=== PATIENT | male | born 1945 | race Caucasian/White ===

== ENCOUNTER 2016-11-10 16:03 | Inpatient (IN) | payer MEDICARE, OTHER ==
--- NOTE | 2016-11-10 16:12 | EDM.PDOC ---
ED HPI GENERAL MEDICAL PROBLEM - General Chief Complaint: General Stated Complaint: Decreased Sodium Time Seen by Provider: 11/10/16 16:10 Source of Information: Reports: Patient, Family (), Old Records ([facility] chart/EMR), Other (Limited transfer records from [facility] in [place]) History Limitations: Reports: No Limitations - History of Present Illness INITIAL COMMENTS - FREE TEXT/NARRATIVE: The patient was brought to the emergency room via private automobile by his for evaluation of newly diagnosed mild leukocytosis and hyponatremia with blood work run in this facility shortly prior to arrival. Note that the patient was sent to this clinic for further evaluation by his regular provider, Rosalia Mendoza PA-C, at [facility] in [place], for further treatment and evaluation. The patient has been experiencing some nonspecific anorexia, generalized arthralgias, and fatigue since 11/05 with the patient not taking any of his medications since about 11/06. He did receive an influenza booster this past season with no recent known exposure to infection, etc. He has also had a nonproductive cough during the last few days with no dyspnea, wheezing, etc.. The patient denies any chest pain/pressure, heart flutter, dizziness, orthostasis, orthopnea, diaphoresis, paresthesias, recent decreased exercise tolerance, or any other anginal-type symptoms. No recent history of abdominal pain, heartburn, diarrhea, melena, gross hematochezia, or any food intolerance, including fatty foods, etc., although some nonspecific nausea couple days ago without emesis and with normal bowel movement 2 days ago. His metformin was apparently increased to a twice a day regimen about 3 weeks ago. He denies any current significant pain or discomfort despite previous arthralgias as above Onset: Gradual Onset Date: 11/05/16 Duration: Constant, Getting Worse Location: Reports: Generalized (As above) Quality: Reports: Ache Severity: Moderate Improves with: Reports: None Worsens with: Reports: None Context: Reports: Other (As above) Associated Symptoms: Reports: Cough, Loss of Appetite, Nausea/Vomiting, Other ( Nonspecific fatigue). 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 Denies: Allergic Rhinitis, Cataract, Hard of Hearing, Retinal Detachment Other HEENT History: Patient wears glasses Cardiovascular History: Reports: Arrhythmia, Heart Murmur, High Cholesterol, Hypertension, Other (See Below). Denies: Afib, Aneurysm, Blood Clots/VTE/DVT, CAD, Cardiomyopathy, Heart Failure, AK, PTCA, PVD, Syncope Other Cardiovascular History: Occasional benign PVCs with no history of cardiac disease and negative workup as below, benign heart murmur secondary to rheumatic fever as a child Respiratory History: Reports: None. Denies: Asthma, COPD, Intubation, Difficult , Intubation, Previous, PE, Pneumothorax, Sleep Apnea, TB Gastrointestinal History: Reports: None. Denies: Bowel Obstruction, Celiac Disease, Cholelithiasis, Chronic Constipation, Chronic Diarrhea, Colon Polyp, Diverticulosis, Fecal Incontinence, Gastritis, GI Bleed, Hepatitis, Hiatal Hernia, Inflammatory Bowel Disease, Irritable Bowel Syndrome, Jaundice, Pancreatitis Genitourinary History: Reports: BPH. Denies: Acute Renal Failure, Chronic Renal Insuffiency, Dialysis, Pyelonephritis, Renal Calculus, Retention, Urinary , STD, Urinary Incontinence, UTI, Recurrent Musculoskeletal History: Reports: Osteoarthritis, Other (See Below). Denies: Amputation, Arthritis, Back Pain, Chronic, Fracture, Gout, Neck Pain, Chronic, Osteoporosis, RA, SLE Other Musculoskeletal History: Mild Scoliosis by x-rays with no chronic low back pain since bilateral TKA as below Neurological History: Reports: None. Denies: Alzheimers Disease, Cerebral Aneurysms, Concussion, Headaches, Chronic, Head Trauma, Migraines, MS, Neuropathy, Diabetic, Neuropathy, Peripheral, Parkinson's, Seizure, TIA Psychiatric History: Reports: None. Denies: Abuse, Victim of, ADD, ADHD, Addiction, Anxiety, Dementia, Depression, Panic Attack, Psych Hospitalization(s) , PTSD, Suicide Attempt, Suicidal Ideation Endocrine/Metabolic History: Reports: Diabetes, Type II, Hypothyroidism. Denies : Diabetes, Type I, IDDM Hematologic History: Reports: None. Denies: Anemia, Blood Transfusion(s), Iron Deficiency Immunologic History: Reports: None. Denies: AIDS, HIV, SLE Oncologic (Cancer) History: Reports: None. Denies: Basal Cell Carcinoma, Colon , Hodgkin's Lymphoma, Leukemia, Lymphoma, Malignant Melanoma, Non-Hodgkin's Lymphoma, Prostate, Squamous Cell Carcinoma Dermatologic History: Reports: None. Denies: Eczema, Psoriasis - Infectious Disease History Infectious Disease History: Reports: None, Chicken Pox, Measles, Rheumatic Fever. Denies: C-Difficile, Meningitis, Mononucleosis, MRSA, Mumps, Pertussis ( Whooping Cough), Rubella, Scarlet Fever, Shingles, TB, VRE - Past Surgical History Head Surgeries/Procedures: Reports: None HEENT Surgical History: Reports: Oral Surgery, Other (See Below). Denies: Adenoidectomy, Cataract Surgery, Eye Surgery, Laser Surgery, LASIK, Myringotomy w Tube(s), Naso-Sinus Surgery, Tonsillectomy Other HEENT Surgeries/Procedures: Multiple dental extractions Cardiovascular Surgical History: Reports: None. Denies: Pacer, Varicose, Vascular Surgery Respiratory Surgical History: Reports: None. Denies: Thoracentesis GI Surgical History: Reports: None. Denies: Appendectomy, Cholecystectomy, Colonoscopy, EGD, Hernia, Abdominal, Hernia, Inguinal, Hernia Repair/Other, Polypectomy Male Surgical History: Reports: None. Denies: Circumcision, Prostate Biopsy , TURP-Transurethral Resection of Prostate, Vasectomy Endocrine Surgical History: Reports: None. Denies: Thyroid Biopsy Neurological Surgical History: Reports: None. Denies: C-Spine, Discectomy, Intracranial, Laminectomy, Lumbar Spine, Spinal Fusion, Vertebroplasty Musculoskeletal Surgical History: Reports: Joint Replacement, Knee Replacement, Other (See Below). Denies: Arthroscopic Knee, Arthroscopic Procedure, Carpal Tunnel, Ganglion Cyst, Hip Replacement, ORIF, Shoulder Surgery Other Musculoskeletal Surgeries/Procedures:: Bilateral total knee arthroplasty in 2010 Oncologic Surgical History: Reports: None Dermatological Surgical History: Reports: None - Past Imaging History Past Imaging History: Reports: Angiography (Heart catheterization in 2011 as follow-up for stress test as below), Stress Testing (Borderline positive exercise portion of Cardiolite stress test on 04/10/10 with normal ejection fraction of 55% at that time a normal subsequent immediate follow-up heart catheterization) Social & Family History - Family History HEENT: Reports: None. Denies: Cataract, Glaucoma, Impaired Vision, Macular Degeneration, Retinal Detachment Cardiac: Reports: CAD, Heart Failure, AK, Other (See Below). Denies: Afib, Arrhythmia, Blood Clots/VTE/DVT, Heart Murmur, High Cholesterol, Hypertension, PVD/COD, Syncope Other Cardiac Family History: Mother with fatal CHF at age 102, brother from an AK in his late 50s with possible history of PTCA/stent Respiratory: Reports: COPD, Other (See Below). Denies: Asthma, PE, Pneumothorax , Sleep Apnea, TB Other Respiratory Family Hisory: Father with fatal COPD at age 75 with history of tobacco use GI: Reports: None. Denies: Celiac Disease, Cholelithiasis, Colon Polyps, GERD, GI bleed, Inflammatory Bowel Disease, Irritable Bowel Syndrome, PUD : Reports: None. Denies: Dialysis, Renal Calculus, Renal Disease/ Insufficiency OBGYN: Reports: None Musculoskeletal: Reports: None. Denies: Gout, RA, SLE Neurological: Reports: None, CVA, Other (See Below). Denies: Alzheimers Disease , Cerebral Aneurysms, Migraines, MS, Parkinson's, Seizure, TIA Other Neurological Family History: Parents with apparent CVAs Psychiatric: Reports: None. Denies: Abuse, Victim of, ADD, ADHD, Anxiety, Depression, Psych Hospitalization(s), PTSD, Suicide Attempt Endocrine/Metabolic: Reports: None. Denies: Diabetes, Type I, Diabetes, type II , Hypothyroidism, IDDM Hematologic: Reports: None. Denies: Anemia Immunologic: Reports: None. Denies: AIDS, HIV, SLE Dermatologic: Reports: None. Denies: Eczema, Psoriasis Oncologic: Reports: Brain, Skin, Other (See Below) Other Oncologic Family History: Sister with fatal unknown type of cancer in her 70s, another sister with fatal brain cancer in her 60s, mother with history of unknown type of skin cancer - Tobacco Use Smoking Status *Q: Never Smoker Used Tobacco, but Quit: No Smoking Cessation Information Provided To Patient: No Second Hand Smoke Exposure: No Second Hand Smoke Education Provided: No - Caffeine Use Caffeine Use: Reports: Coffee (2 cups per day), Soda (Very occasional). Denies : Energy Drinks, Tea - Alcohol Use Alcohol Use History: Yes Days Per Week of Alcohol Use: 1 (No previous DWIs, problems with alcohol abuse, etc.) Number of Drinks Per Day: 1 (Usually beer) Total Drinks Per Week: 1 Alcohol Use in Last Twelve Months: Yes Alcohol Use Frequency: Socially, Weekly - Recreational Drug Use Recreational Drug Use: No Drug Use in Last 12 Months: No Recreational Drug Type: Denies: Amphetamines (Speed), Cocaine, Heroin, Inhalants (Glues, Solvents, Aerosols), LSD (Acid), Marijuana/Hashish, Methamphetamine, Morphine - Living Situation & Occupation Living situation: Reports: (1969, 4 children), with Family () 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 Denies: Fever, Chills, Malaise, Weakness, Night Sweats, Diaphoresis, Weight Loss, Weight Gain HEENT: Reports: Glasses. Denies: Dental Pain, Ear Pain, Eye Discharge, Eye Pain , Hearing Loss, Nose Pain, Rhinitis, Sinus Problem, Throat Pain, Throat Swelling , Vertigo, Vision Change Respiratory: Reports: Cough. Denies: Shortness of Breath, Wheezing, Pleuritic Chest Pain, Sputum, Hemoptysis Cardiovascular: Denies: Chest Pain, Blood Pressure Problem, Claudication, Dyspnea on Exertion, Edema, Lightheadedness, Orthopnea, Palpitations, PND, Syncope Endocrine: Reports: Fatigue (Nonspecific), High Glucose (Home Accu-Cheks averaging in the 230s). Denies: Low Glucose, Polydypsia, Polyuria GI/Abdominal: Reports: No Symptoms. Denies: Abdominal Pain, Anorexia, Black Stool, Bloody Stool, Constipation, Diarrhea, Decreased Appetite, Difficulty Swallowing, Distension, Flatus, Hematemesis, Hematochezia, Melena, Mucous in Stool, Nausea, Stool Incontinence, Vomiting : Reports: No Symptoms. Denies: Dysuria, Flank Pain, Frequency, Hematuria, Incontinence, Pain, Urgency, Urinary Retention Musculoskeletal: Reports: Joint Pain (As below), Muscle Pain (Generalized arthralgias). Denies: Neck Pain, Shoulder Pain, Back Pain, Leg Pain, Joint Swelling Skin: Denies: Jaundice, Pallor, Diaphoresis, Bruising, Pruritis, Wound Neurological: Reports: No Symptoms. Denies: Confusion, Dizziness, Headache, Numbness, Paresthesia, Syncope, Tingling, Tremors, Weakness Psychiatric: Reports: No Symptoms. Denies: Agitation, Anxiety, Confusion, Cravings, Depression, Hallucinations, Mood Lability, Suicidal Ideation Hematologic/Lymphatic: Reports: No Symptoms Immunologic: Reports: No Symptoms ED EXAM, GENERAL - Physical Exam Exam: See Below Exam Limited By: No Limitations General Appearance: Alert, WD/WN, No Apparent Distress Eye Exam: Bilateral Eye: EOMI, Normal Fundi, PERRL Ears: Normal Canal (Although moderate cerumen impaction right greater than left) , Normal TMs, Hearing Loss (Mild bilateral presbycusis by clinical exam) Nose: Normal Inspection, Normal Mucosa, No Blood. No: Clear Rhinorrhea Throat/Mouth: Normal Inspection, Normal Lips, Normal Teeth (Occasional missing teeth), Normal Gums, Normal Oropharynx, Normal Voice, No Airway Compromise. No : Dysphagia, Perioral Cyanosis Head: Atraumatic, Normocephalic. No: Facial Swelling, Facial Tenderness, Sinus Tenderness Neck: Supple, Non-Tender, Full Range of Motion, Carotid Bruit (Mild bilateral borderline carotid bruits). No: Lymphadenopathy (L), Lymphadenopathy (R), Thyromegaly Respiratory/Chest: No Respiratory Distress, Lungs Clear, Normal Breath Sounds, No Accessory Muscle Use, Chest Non-Tender. No: Pleural Rub, Retractions Cardiovascular: Normal Peripheral Pulses, Regular Rate, Rhythm, No Edema, No Gallop, No JVD, No Murmur (Despite history as above), No Rub. No: Gallop/S3, Gallop/S4, Friction Rub Peripheral Pulses: 2+: Radial (L), Radial (R), Dorsalis Pedis (L), Dorsalis Pedis (R) GI/Abdominal: Normal Bowel Sounds, Soft, Non-Tender, No Organomegaly, No Distention, No Abnormal Bruit, No Mass, Pelvis Stable. No: Guarding (Male) Exam: Deferred Rectal (Males) Exam: Deferred Back Exam: Normal Inspection, Full Range of Motion. No: CVA Tenderness (L), CVA Tenderness (R), Muscle Spasm Extremities: Normal Inspection, Normal Range of Motion, Non-Tender, No Pedal Edema, Normal Capillary Refill. No: Ally's Sign Neurological: Alert, Oriented, CN II-XII Intact, Normal Cognition, Normal Gait, Normal Reflexes (Negative Babinski's), No Motor/Sensory Deficits Psychiatric: Normal Affect, Normal Mood Skin Exam: Warm, Dry, Intact, Normal Color, No Rash. No: Diaphoretic, Ecchymosis, Petechiae, Wound/Incision Lymphatic: No Adenopathy EKG INTERPRETATION EKG Date: 11/10/16 Time: 16:30 Rhythm: NSR Rate (Beats/Min): 72 Ina: Normal (Neutral cardiac axis) P-Wave: Present (Diffuse biphasic P wavesmild) QRS: Wide (QRS interval of 0.10 seconds representing probable repolarization changes with T-wave in lead V1 and 3 with questionable Q wave in lead 3) ST-T: Normal QT: Normal MI/PQ Interval: 0.18 seconds Comparison: No Change (Last EKG at time of Cardiolite stress test on 04/10/10) EKG Interpretation Comments: 1. No acute ischemic changes 2. Possible left atrial enlargement Course - Vital Signs Last Recorded V/S: Last Vital Signs Temp 36.8 C 11/10/16 16:05 Pulse 75 11/10/16 17:06 Resp 16 11/10/16 17:06 BP 131/71 11/10/16 17:06 Pulse Ox 100 11/10/16 17:06 Vital Signs - 24 hr 11/10/16 11/10/16 11/10/16 16:05 16:15 16:50 Temperature [ 36.8 C Oral] Pulse, 78 79 74 Peripheral [ Pulse Oximetry] Respiratory 16 16 17 Rate Blood Pressure 115/90 135/73 129/69 [Right Upper Arm] O2 Sat by Pulse 99 98 99 Oximetry 11/10/16 17:06 Temperature [ Oral] Pulse, 75 Peripheral [ Pulse Oximetry] Respiratory 16 Rate Blood Pressure 131/71 [Right Upper Arm] O2 Sat by Pulse 100 Oximetry Note [employer] down during care and may be incomplete - Orders/Labs/Meds Orders: Active Orders 24 hr Category Date Time Status Cardiac Monitoring [RC] . DIRECTED Care 11/10/16 16:15 Active EKG Documentation Completion [RC] ASDIRECTED Care 11/10/16 16:15 Active Peripheral IV Care [RC] . DIRECTED Care 11/10/16 16:15 Active Pulse Oximetry [RC] CONTINUOUS Care 11/10/16 16:15 Active Up With Assistance [RC] PFP Care 11/10/16 16:15 Active Vital Signs [RC] PFP Care 11/10/16 16:15 Active Nothing per Oral Now Diet [DIET] Diet 11/10/16 Breakfast Active Chest 1V Frontal [CR] Stat Exams 11/10/16 16:15 Taken CULTURE BLOOD [BC] Stat Lab 11/10/16 16:20 Received CULTURE BLOOD [BC] Stat Lab 11/10/16 16:30 Received Sodium Chloride 0.9% [Saline Flush] Med 11/10/16 16:14 Active 10 ml FLUSH ASDIRECTED PRN Blood Culture x2 Reflex Set [OM.PC] Urgent Oth 11/10/16 16:18 Ordered Obtain Past Medical Record [OM.PC] Urgent Oth 11/10/16 16:15 Active Peripheral IV Insertion Adult [OM.PC] Stat Oth 11/10/16 16:15 Ordered Resuscitation Status Stat Resus Stat 11/10/16 16:14 Ordered Medication Orders Sodium Chloride (Saline Flush) 10 ml FLUSH ASDIRECTED PRN PRN Reason: Keep Vein Open Labs: Laboratory Tests 11/10/16 11/10/16 11/10/16 Range/Units 16:20 16:20 16:20 PT 11.4 (9.8-11.7) SEC INR 1.1 APTT 23.6 (23.5-30.0) SEC D-Dimer, Quantitative 347 (0-400) ng/mL Lactic Acid (0.4-2.0) mmol/L Uric Acid 5.1 (2.6-7.2) mg/dL Magnesium 2.3 (1.8-2.4) mg/dL Creatine Kinase 74 (26-308) U/L Creatine Kinase Index 0.5 (0.0-2.5) % CK-MB (CK-2) 0.40 (0.00-3.60) ng/mL Troponin I 0.028 (0.000-0.056) ng/mL [id number] Pept 134 H (0-125) pg/mL TSH, Ultra Sensitive 5.872 H (0.358-3.740) mIU/mL 11/10/16 Range/Units 16:20 PT (9.8-11.7) SEC INR APTT (23.5-30.0) SEC D-Dimer, Quantitative (0-400) ng/mL Lactic Acid 2.0 (0.4-2.0) mmol/L Uric Acid (2.6-7.2) mg/dL Magnesium (1.8-2.4) mg/dL Creatine Kinase (26-308) U/L Creatine Kinase Index (0.0-2.5) % CK-MB (CK-2) (0.00-3.60) ng/mL Troponin I (0.000-0.056) ng/mL [id number] Pept (0-125) pg/mL TSH, Ultra Sensitive (0.358-3.740) mIU/mL Blood cultures 2 also collected. CBC ordered prior to emergency room evaluation by his regular provider showed elevated WBCs of 12.7 with 9.67 neutrophils and normal hemoglobin of 14.0. Comprehensive metabolic panel was normal with exception of sodium of 128 and chloride of 92 with elevated random glucose of 252, calcium 8.4, and total bilirubin of 1.5 and CK normal at 72, CRP 0.5 Meds: Medications Generic Name Dose Route Start Last Admin Trade Name Freq PRN Reason Stop Dose Admin Sodium Chloride 10 ml 11/10/16 16:14 Saline Flush FLUSH ASDIRECTED PRN Keep Vein Open - Radiology Interpretation Free Text/Narrative:: Heart monitor shows normal sinus rhythm with heart rate in the 70s with no ectopy or arrhythmia Chest x-ray, portable, shows evidence of possible pulmonary obstructive disease with moderately prominent aortic arch but no evidence of aneurysm, cardiomegaly , pulmonary infiltrates, pneumothorax, etc.. Probable pulmonary hypertension with possible mild CHF component Departure - Departure Time of Disposition: 18:25 Disposition: Admitted As Inpatient 64 Condition: Good Clinical Impression: Hyponatremia, Hypothyroidism (acquired) CHF (congestive heart failure) Qualifiers: Congestive heart failure type: unspecified congestive heart failure type Congestive heart failure chronicity: acute Qualified Code(s): I50.9 - Heart failure, unspecified Hyperlipidemia Qualifiers: Hyperlipidemia type: unspecified Qualified Code(s): E78.5 - Hyperlipidemia, unspecified Diabetes mellitus Qualifiers: Diabetes mellitus type: type 2 Diabetes mellitus complication status: without complication Diabetes mellitus shelter insulin use: without shelter use Qualified Code(s): E11.9 - Type 2 diabetes mellitus without complications Osteoarthritis Qualifiers: Osteoarthritis location: multiple joints Osteoarthritis type: primary Qualified Code(s): M15.0 - Primary generalized (osteo)arthritis Fatigue Qualifiers: Fatigue type: unspecified Qualified Code(s): R53.83 - Other fatigue - Discharge Information Forms: ED Department Discharge Care Plan Goals: See plan - Problem List & Annotations (1) CHF (congestive heart failure) SNOMED Code(s): 42995580 Code(s): I50.9 - HEART FAILURE, UNSPECIFIED Status: Acute Priority: High Current Visit: Yes Onset Date: 11/10/16 Annotation/Comment:: Borderline CHF by chest x-ray and BNP, although no recent chest pain or anginal type symptoms. Note multiple cardiac risk factors, however. Echocardiogram as an outpatient secondary to availability. Initiate standard cardiac rule out AK orders with mild change in his troponin I but otherwise normal EKG and cardiac enzymes. Chest pain protocol not initiated in the emergency room secondary to absence of anginal type symptoms. Cardiology consultation and/or further workup , including Cardiolite stress test, etc., depending on his clinical course Qualifiers: Congestive heart failure type: unspecified congestive heart failure type Congestive heart failure chronicity: acute Qualified Code(s): I50.9 - Heart failure, unspecified (2) Hyponatremia SNOMED Code(s): 13376655 Code(s): E87.1 - HYPO-OSMOLALITY AND HYPONATREMIA Status: Acute Priority : High Current Visit: Yes Onset Date: 11/10/16 Annotation/Comment:: IV lactated Ringer's with caution secondary to his borderline CHF as above. Consider 3% sodium chloride infusion depending on his clinical response (3) Diabetes mellitus SNOMED Code(s): 78230696 Code(s): E11.9 - TYPE 2 DIABETES MELLITUS WITHOUT COMPLICATIONS Status: Chronic Priority: Medium Current Visit: Yes Annotation/Comment:: Under poor control recently was recently increased metformin as above. Glycosylated hemoglobin in the a.m. 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 Observe for now Qualifiers: Fatigue type: unspecified Qualified Code(s): R53.83 - Other fatigue (5) Hyperlipidemia SNOMED Code(s): 58760192 Code(s): E78.5 - HYPERLIPIDEMIA, UNSPECIFIED Status: Chronic Priority: Medium Current Visit: Yes Annotation/Comment:: Currently under therapy, lipid panel in the a.m. Qualifiers: Hyperlipidemia type: unspecified Qualified Code(s): E78.5 - Hyperlipidemia , unspecified (6) Hypothyroidism (acquired) SNOMED Code(s): 960451583 Code(s): E03.9 - HYPOTHYROIDISM, UNSPECIFIED Status: Acute Priority: Medium Current Visit: Yes Annotation/Comment:: TSH somewhat elevated today, however patient has been noncompliant with his medications over the last few days as above. Observe for now with repeat TSH prior to discharge (7) Osteoarthritis SNOMED Code(s): 977789565 Code(s): M19.90 - UNSPECIFIED OSTEOARTHRITIS, UNSPECIFIED SITE Status: Chronic Priority: Medium Current Visit: Yes Annotation/Comment:: Stable by history Qualifiers: Osteoarthritis location: multiple joints Osteoarthritis type: primary Qualified Code(s): M15.0 - Primary generalized (osteo)arthritis - Problem List Review Problem List Initiated/Reviewed/Updated: Yes - My Orders Last 24 Hours: My Active Orders 11/10/16 16:14 Sodium Chloride 0.9% [Saline Flush] 10 ml FLUSH ASDIRECTED PRN Resuscitation Status Stat 11/10/16 16:15 Cardiac Monitoring [RC] . DIRECTED EKG Documentation Completion [RC] ASDIRECTED Peripheral IV Care [RC] . DIRECTED Pulse Oximetry [RC] CONTINUOUS Up With Assistance [RC] PFP Vital Signs [RC] PFP Chest 1V Frontal [CR] Stat Obtain Past Medical Record [OM.PC] Urgent Peripheral IV Insertion Adult [OM.PC] Stat 11/10/16 16:18 Blood Culture x2 Reflex Set [OM.PC] Urgent 11/10/16 16:20 CULTURE BLOOD [BC] Stat 11/10/16 16:30 CULTURE BLOOD [BC] Stat 11/10/16 Breakfast Nothing per Oral Now Diet [DIET] - Assessment/Plan Admission H&P: Please use this note as an admission H&P Last 24 Hours: My Active Orders 11/10/16 16:14 Sodium Chloride 0.9% [Saline Flush] 10 ml FLUSH ASDIRECTED PRN Resuscitation Status Stat 11/10/16 16:15 Cardiac Monitoring [RC] . DIRECTED EKG Documentation Completion [RC] ASDIRECTED Peripheral IV Care [RC] . DIRECTED Pulse Oximetry [RC] CONTINUOUS Up With Assistance [RC] PFP Vital Signs [RC] PFP Chest 1V Frontal [CR] Stat Obtain Past Medical Record [OM.PC] Urgent Peripheral IV Insertion Adult [OM.PC] Stat 11/10/16 16:18 Blood Culture x2 Reflex Set [OM.PC] Urgent 11/10/16 16:20 CULTURE BLOOD [BC] Stat 11/10/16 16:30 CULTURE BLOOD [BC] Stat 11/10/16 Breakfast Nothing per Oral Now Diet [DIET] Assessment:: As above. Plan: As above. Extensive precautions were given to the patient and his , who are in agreement with the treatment plan. The patient will require about 3-4 days of inpatient/acute care secondary to multiple health problems as above. Coral batres physician assumes care in the a.m.
[2016-11-10] MEDS ORDERED: Insulin Aspart 100 Units/ML 3 ML Pen SUBCUT SCH (18:00)
[2016-11-10] MEDS ORDERED: metFORMIN 500 MG Tab.ER PO SCH (19:30)
[2016-11-10] MEDS ORDERED: cefTRIAXone 1 GM Vial IV SCH (20:00)
[2016-11-10] MEDS: Famotidine 20 MG/2 ML SDV IVPUSH SCH (20:46)
[2016-11-10] MEDS: cefTRIAXone 1 GM Vial IVPUSH SCH (20:49)
[2016-11-10] MEDS: Lactated Ringers 1,000 ML IV SCH (20:57)
[2016-11-10] MEDS: Sodium Chloride 0.9% 10 ML Syringe FLUSH PRN (20:58)
[2016-11-11] MEDS: Lactated Ringers 1,000 ML IV SCH ×2 (06:55→18:52)
[2016-11-11] MEDS: Insulin Aspart 100 Units/ML 3 ML Pen SUBCUT SCH ×4 (07:26→21:12)
[2016-11-11] MEDS: Famotidine 20 MG/2 ML SDV IVPUSH SCH ×2 (07:28→17:08)
[2016-11-11] MEDS: Aspirin 81 MG Tab.EC PO SCH (07:30)
[2016-11-11] MEDS ORDERED: Levothyroxine 25 MCG Tab PO SCH (07:30)
[2016-11-11] MEDS: Levothyroxine 25 MCG Tab PO SCH (07:31)
[2016-11-11] MEDS: Lisinopril 10 MG Tab PO SCH (07:31)
[2016-11-11] MEDS: metFORMIN 500 MG Tab.ER PO SCH ×2 (07:31→17:07)
[2016-11-11] MEDS: cefTRIAXone 1 GM Vial IVPUSH SCH (07:38)
[2016-11-11] MEDS: Sodium Chloride 0.9% 10 ML Syringe FLUSH PRN ×2 (07:42→08:50)
[2016-11-11 07:46] LABS: CHLORIDE,CL 96 mmol/L (98-107); SODIUM,NA 130 mmol/L (136-145)
[2016-11-11] MEDS ORDERED: Aspirin 81 MG Tab.EC PO SCH ×2 (08:00→20:00)
[2016-11-11] MEDS ORDERED: Lisinopril 10 MG Tab PO SCH (08:00)
[2016-11-11] MEDS ORDERED: atorvaSTATin 10 MG Tab PO SCH (08:00)
[2016-11-11] MEDS: atorvaSTATin 10 MG Tab PO SCH (08:58)
[2016-11-11] MEDS ORDERED: Magnesium Hydroxide 400 MG/5 ML Susp 30 ML Cup PO PRN (10:01)
[2016-11-11] MEDS: cefTRIAXone 1 GM in Sodium Chloride 0.9% 100 ML IV SCH (19:21)
--- NOTE | 2016-11-11 20:38 | PCM.PN ---
- General Info Date of Service: 11/11/16 Admission Dx/Problem (Free Text): Patient admitted for hyponatremia, fatigue. Noted to have elevated TSH. Also had intermittent confusion. Functional Status: Reports: Pain Controlled, Tolerating Diet, Ambulating, Urinating. Denies: New Symptoms - Review of Systems General: Reports: Fatigue (much improved today). Denies: Fever, Malaise, Chills , Night Sweats HEENT: Reports: No Symptoms. Denies: Headaches Pulmonary: Reports: No Symptoms Cardiovascular: Reports: No Symptoms Gastrointestinal: Reports: No Symptoms, Other (No stool for approximately 4 days but denies feeling constipated. ) Genitourinary: Reports: No Symptoms Musculoskeletal: Reports: No Symptoms Skin: Reports: No Symptoms Neurological: Reports: No Symptoms Psychiatric: Reports: No Symptoms - Patient Data Vitals - Most Recent: Last Vital Signs Temp 37.6 C 11/11/16 20:00 Pulse 77 11/11/16 20:00 Resp 16 11/11/16 20:00 BP 130/63 11/11/16 20:00 Pulse Ox 100 11/11/16 20:00 Weight - Most Recent: 80.331 kg I&O - Last 24 Hours: Intake & Output 11/11/16 11/11/16 11/11/16 06:59 14:59 22:59 Intake Total 1088 240 Output Total 525 Balance -525 1088 240 Lab Results Last 24 Hours: Laboratory Results - last 24 hr 11/10/16 11/10/16 11/10/16 Range/Units 20:44 21:42 21:42 WBC (4.0-10.2) K/uL RBC (4.33-5.41) M/uL Hgb (13.1-16.8) g/dL Hct (39.0-49.0) % MCV (84.0-98.0) fL MCH (28.2-33.3) pg MCHC (31.7-36.0) g/dL RDW (11.2-14.1) % Plt Count (150-350) K/uL Neut % (Auto) (45.0-80.0) % Lymph % (Auto) (10.0-50.0) % [place] % (Auto) (2.0-14.0) % Eos % (Auto) (0.0-5.0) % Baso % (Auto) (0.0-2.0) % Neut # (Auto) (1.40-7.00) K/uL Lymph # (Auto) (0.50-3.50) K/uL [place] # (Auto) (0.00-1.00) K/uL Eos # (Auto) (0.00-0.50) K/uL Baso # (Auto) (0.00-0.20) K/uL Sodium (136-145) mmol/L Potassium (3.5-5.1) mmol/L Chloride (98-107) mmol/L Carbon Dioxide (21.0-32.0) mmol/L BUN (7-18) mg/dL Creatinine (0.51-1.17) mg/dL Est Cr Clr Drug Dosing mL/min Estimated GFR (MDRD) mL/min Glucose (74-106) mg/dL POC Glucose 181 H (65-110) mg/dl Hemoglobin A1c (4.3-5.7) % Calcium (8.5-10.1) mg/dL Total Bilirubin 1.3 H (0.2-1.0) mg/dL Direct Bilirubin 0.4 H (0.0-0.2) mg/dL Indirect Bilirubin 0.9 AST (15-37) U/L ALT (12-78) U/L Alkaline Phosphatase (46-116) IU/L Creatine Kinase 83 (26-308) U/L Creatine Kinase Index 0.5 (0.0-2.5) % CK-MB (CK-2) 0.40 (0.00-3.60) ng/mL Troponin I 0.030 (0.000-0.056) ng/mL Total Protein (6.4-8.2) g/dL Albumin (3.4-5.0) g/dL Triglycerides (30-150) mg/dL Cholesterol (100-200) mg/dL LDL Cholesterol, Calc (0-100) mg/dL HDL Cholesterol (40-60) mg/dL Ur Random Microalbumin (NEGATIVE) mg/L Ketones Negative 11/11/16 11/11/16 11/11/16 Range/Units 03:36 03:50 06:47 WBC 9.0 (4.0-10.2) K/uL RBC 3.92 L (4.33-5.41) M/uL Hgb 12.4 L D (13.1-16.8) g/dL Hct 34.8 L (39.0-49.0) % MCV 88.8 (84.0-98.0) fL MCH 31.6 (28.2-33.3) pg MCHC 35.6 (31.7-36.0) g/dL RDW 12.0 (11.2-14.1) % Plt Count 202 (150-350) K/uL Neut % (Auto) 70.5 (45.0-80.0) % Lymph % (Auto) 16.7 (10.0-50.0) % [place] % (Auto) 12.0 (2.0-14.0) % Eos % (Auto) 0.6 (0.0-5.0) % Baso % (Auto) 0.2 (0.0-2.0) % Neut # (Auto) 6.35 (1.40-7.00) K/uL Lymph # (Auto) 1.50 (0.50-3.50) K/uL [place] # (Auto) 1.08 H (0.00-1.00) K/uL Eos # (Auto) 0.05 (0.00-0.50) K/uL Baso # (Auto) 0.02 (0.00-0.20) K/uL Sodium (136-145) mmol/L Potassium (3.5-5.1) mmol/L Chloride (98-107) mmol/L Carbon Dioxide (21.0-32.0) mmol/L BUN (7-18) mg/dL Creatinine (0.51-1.17) mg/dL Est Cr Clr Drug Dosing mL/min Estimated GFR (MDRD) mL/min Glucose (74-106) mg/dL POC Glucose 189 H (65-110) mg/dl Hemoglobin A1c (4.3-5.7) % Calcium (8.5-10.1) mg/dL Total Bilirubin (0.2-1.0) mg/dL Direct Bilirubin (0.0-0.2) mg/dL Indirect Bilirubin AST (15-37) U/L ALT (12-78) U/L Alkaline Phosphatase (46-116) IU/L Creatine Kinase (26-308) U/L Creatine Kinase Index (0.0-2.5) % CK-MB (CK-2) (0.00-3.60) ng/mL Troponin I (0.000-0.056) ng/mL Total Protein (6.4-8.2) g/dL Albumin (3.4-5.0) g/dL Triglycerides (30-150) mg/dL Cholesterol (100-200) mg/dL LDL Cholesterol, Calc (0-100) mg/dL HDL Cholesterol (40-60) mg/dL Ur Random Microalbumin 0 (NEGATIVE) mg/L Ketones 11/11/16 11/11/16 11/11/16 Range/Units 06:47 06:47 07:26 WBC (4.0-10.2) K/uL RBC (4.33-5.41) M/uL Hgb (13.1-16.8) g/dL Hct (39.0-49.0) % MCV (84.0-98.0) fL MCH (28.2-33.3) pg MCHC (31.7-36.0) g/dL RDW (11.2-14.1) % Plt Count (150-350) K/uL Neut % (Auto) (45.0-80.0) % Lymph % (Auto) (10.0-50.0) % [place] % (Auto) (2.0-14.0) % Eos % (Auto) (0.0-5.0) % Baso % (Auto) (0.0-2.0) % Neut # (Auto) (1.40-7.00) K/uL Lymph # (Auto) (0.50-3.50) K/uL [place] # (Auto) (0.00-1.00) K/uL Eos # (Auto) (0.00-0.50) K/uL Baso # (Auto) (0.00-0.20) K/uL Sodium 130 L (136-145) mmol/L Potassium 4.0 (3.5-5.1) mmol/L Chloride 96 L (98-107) mmol/L Carbon Dioxide 26.2 (21.0-32.0) mmol/L BUN 17 (7-18) mg/dL Creatinine 1.03 (0.51-1.17) mg/dL Est Cr Clr Drug Dosing 65.95 mL/min Estimated GFR (MDRD) > 60 mL/min Glucose 181 H (74-106) mg/dL POC Glucose 175 H (65-110) mg/dl Hemoglobin A1c 9.2 H (4.3-5.7) % Calcium 8.0 L (8.5-10.1) mg/dL Total Bilirubin 1.4 H (0.2-1.0) mg/dL Direct Bilirubin (0.0-0.2) mg/dL Indirect Bilirubin AST 15 (15-37) U/L ALT 23 (12-78) U/L Alkaline Phosphatase 68 (46-116) IU/L Creatine Kinase 84 (26-308) U/L Creatine Kinase Index 0.5 (0.0-2.5) % CK-MB (CK-2) 0.40 (0.00-3.60) ng/mL Troponin I 0.024 (0.000-0.056) ng/mL Total Protein 6.8 (6.4-8.2) g/dL Albumin 3.1 L (3.4-5.0) g/dL Triglycerides 73 (30-150) mg/dL Cholesterol 110 (100-200) mg/dL LDL Cholesterol, Calc 70 (0-100) mg/dL HDL Cholesterol 25 L (40-60) mg/dL Ur Random Microalbumin (NEGATIVE) mg/L Ketones 11/11/16 11/11/16 Range/Units 11:39 16:59 WBC (4.0-10.2) K/uL RBC (4.33-5.41) M/uL Hgb (13.1-16.8) g/dL Hct (39.0-49.0) % MCV (84.0-98.0) fL MCH (28.2-33.3) pg MCHC (31.7-36.0) g/dL RDW (11.2-14.1) % Plt Count (150-350) K/uL Neut % (Auto) (45.0-80.0) % Lymph % (Auto) (10.0-50.0) % [place] % (Auto) (2.0-14.0) % Eos % (Auto) (0.0-5.0) % Baso % (Auto) (0.0-2.0) % Neut # (Auto) (1.40-7.00) K/uL Lymph # (Auto) (0.50-3.50) K/uL [place] # (Auto) (0.00-1.00) K/uL Eos # (Auto) (0.00-0.50) K/uL Baso # (Auto) (0.00-0.20) K/uL Sodium (136-145) mmol/L Potassium (3.5-5.1) mmol/L Chloride (98-107) mmol/L Carbon Dioxide (21.0-32.0) mmol/L BUN (7-18) mg/dL Creatinine (0.51-1.17) mg/dL Est Cr Clr Drug Dosing mL/min Estimated GFR (MDRD) mL/min Glucose (74-106) mg/dL POC Glucose 158 H 158 H (65-110) mg/dl Hemoglobin A1c (4.3-5.7) % Calcium (8.5-10.1) mg/dL Total Bilirubin (0.2-1.0) mg/dL Direct Bilirubin (0.0-0.2) mg/dL Indirect Bilirubin AST (15-37) U/L ALT (12-78) U/L Alkaline Phosphatase (46-116) IU/L Creatine Kinase (26-308) U/L Creatine Kinase Index (0.0-2.5) % CK-MB (CK-2) (0.00-3.60) ng/mL Troponin I (0.000-0.056) ng/mL Total Protein (6.4-8.2) g/dL Albumin (3.4-5.0) g/dL Triglycerides (30-150) mg/dL Cholesterol (100-200) mg/dL LDL Cholesterol, Calc (0-100) mg/dL HDL Cholesterol (40-60) mg/dL Ur Random Microalbumin (NEGATIVE) mg/L Ketones Med Orders - Current: Current Medications Aspirin (Halfprin) 81 mg PO DAILY [facility] Last Admin: 11/11/16 07:30 Dose: 81 mg Atorvastatin Calcium (Lipitor) 10 mg PO DAILY [facility] Last Admin: 11/11/16 08:58 Dose: 10 mg Famotidine (Pepcid) 20 mg IVPUSH BID [facility] Last Admin: 11/11/16 17:08 Dose: 20 mg Lactated Ringer's (Ringers, Lactated) 1,000 mls @ 100 mls/hr IV ASDIRECTED [facility] Last Admin: 11/11/16 18:52 Dose: 100 mls/hr Ceftriaxone Sodium 1 gm/ (Sodium Chloride) 100 mls @ 200 mls/hr IV Q12H [facility] Last Admin: 11/11/16 19:21 Dose: 200 mls/hr Insulin Aspart (Novolog) 0 unit SUBCUT QIDACANDBED [facility] PRN Reason: Protocol Last Admin: 11/11/16 17:00 Dose: Not Given Levothyroxine Sodium (Levothyroxine) 25 mcg PO DAILY [facility] Last Admin: 11/11/16 07:31 Dose: 25 mcg Lisinopril (Prinivil) 10 mg PO DAILY [facility] Last Admin: 11/11/16 07:31 Dose: 10 mg Magnesium Hydroxide (Milk Of Magnesia) 30 ml PO DAILY PRN PRN Reason: Constipation Metformin HCl (Glucophage Xr) 500 mg PO BID [facility] Last Admin: 11/11/16 17:07 Dose: 500 mg Sodium Chloride (Saline Flush) 10 ml FLUSH ASDIRECTED PRN PRN Reason: Keep Vein Open Last Admin: 11/11/16 08:50 Dose: 10 ml Discontinued Medications Aspirin (Halfprin) 81 mg PO DAILY [facility] Atorvastatin Calcium (Lipitor) 10 mg PO DAILY [facility] Ceftriaxone Sodium (Rocephin) 1 gm IV Q12H [facility] Ceftriaxone Sodium (Rocephin) 1 gm IVPUSH Q12H [facility] Last Admin: 11/11/16 07:38 Dose: 1 gm Insulin Aspart (Novolog) 0 unit SUBCUT Q6H [facility] PRN Reason: Protocol Last Admin: 11/10/16 20:54 Dose: 2 units Levothyroxine Sodium (Levothyroxine) 25 mcg PO ACBREAKFAST [facility] Lisinopril (Prinivil) 10 mg PO DAILY [facility] Metformin HCl (Glucophage Xr) 500 mg PO BIDMEALS [facility] Last Admin: 11/10/16 20:50 Dose: 500 mg - Exam General: Alert, Oriented, Cooperative, No Acute Distress HEENT: Pupils Equal, Pupils Reactive, EOMI, Mucous Membr. Moist/[place] Neck: Supple Lungs: Clear to Auscultation, Normal Respiratory Effort Cardiovascular: Regular Rate, Regular Rhythm GI/Abdominal Exam: Normal Bowel Sounds, Soft, Non-Tender, No Organomegaly, No Distention, No Mass (Male) Exam: Deferred Back Exam: Normal Inspection Extremities: Normal Inspection, Non-Tender, Normal Capillary Refill Peripheral Pulses: 2+: Radial (L), Radial (R) Skin: Warm, Dry, Intact Neurological: No New Focal Deficit Psy/Mental Status: Alert, Normal Affect, Normal Mood EKG INTERPRETATION EKG Date: 11/11/16 Time: 07:13 Rhythm: NSR Rate (Beats/Min): 61 [place]: Normal P-Wave: Present QRS: Normal ST-T: Normal QT: Normal Comparison: No Change - Problem List & Annotations (1) Hyponatremia SNOMED Code(s): 63718910 Code(s): E87.1 - HYPO-OSMOLALITY AND HYPONATREMIA Status: Acute Priority : High Current Visit: Yes Onset Date: 11/10/16 Annotation/Comment:: Improved to 130 today. Will change to 3% sodium chloride overnight and recheck sodium level in the morning. (2) Hypothyroidism (acquired) SNOMED Code(s): 224186744 Code(s): E03.9 - HYPOTHYROIDISM, UNSPECIFIED Status: Acute Priority: Medium Current Visit: Yes Annotation/Comment:: TSH somewhat elevated today, however patient has been noncompliant with his medications over the last few days as above. Observe for now with repeat TSH prior to discharge - Problem List Review Problem List Initiated/Reviewed/Updated: Yes - My Orders Last 24 Hours: My Active Orders 11/11/16 20:32 LYME/B.BURGDORFERI IGG/IGM [REF] Routine [place] VIRUS IGM [REF] Routine 11/11/16 Dinner ADA Diabetic [[place] [employer] Diet] [DIET] 11/12/16 05:11 COMPREHENSIVE METABOLIC PN,CMP [CHEM] AM 11/12/16 05:15 CBC WITH AUTO DIFF [HEME] AM - Assessment Assessment:: Patient with fatigue, mild confusion at times. Mild hyponatremia that has improved slightly since admission. On Rocephin. Mildly elevated WBC noted in UA. Troponin unremarkable. No changes noted on EKG today. Patient overall feels much better today then yesterday per self report. He did recall that he has not quite felt like his usual self for a good month. Specifically notes feeling chilled at times and needing to wear a sweater when he normally would not of in past. Patient and family brought up concern about possible Lyme disease or [place]. They noted his earlier problems with generalized achiness as well as headache along with the observed confusion. - Plan Plan:: Will give 3% Na IV tonight at low rate of infusion given CHF history. Added Lyme as well as [place] to morning labs. Recheck CBC and Chem in AM.
[2016-11-11] MEDS ORDERED: Sodium Chloride 3% 500 ML IV SCH (21:00)
[2016-11-11] MEDS ORDERED: Sodium Chloride 0.9% 500 ML IV ONE (21:27)
[2016-11-12] MEDS: Insulin Aspart 100 Units/ML 3 ML Pen SUBCUT SCH ×4 (08:23→21:07)
[2016-11-12] MEDS: Levothyroxine 25 MCG Tab PO SCH (08:24)
[2016-11-12] MEDS: metFORMIN 500 MG Tab.ER PO SCH ×2 (08:25→17:38)
[2016-11-12] MEDS: Lisinopril 10 MG Tab PO SCH (08:25)
[2016-11-12] MEDS: Aspirin 81 MG Tab.EC PO SCH (08:25)
[2016-11-12] MEDS: atorvaSTATin 10 MG Tab PO SCH (08:26)
[2016-11-12] MEDS: Famotidine 20 MG/2 ML SDV IVPUSH SCH ×2 (08:27→17:38)
[2016-11-12] MEDS: Sodium Chloride 0.9% 10 ML Syringe FLUSH PRN ×4 (08:28→19:42)
[2016-11-12] MEDS: cefTRIAXone 1 GM in Sodium Chloride 0.9% 100 ML IV SCH ×2 (08:33→19:42)
[2016-11-12 09:07] LABS: CHLORIDE,CL 98 mmol/L (98-107); SODIUM,NA 130 mmol/L (136-145)
[2016-11-12] MEDS ORDERED: Sodium Chloride 3% 500 ML IV SCH (09:30)
--- NOTE | 2016-11-12 10:47 | PCM.PN ---
- General Info Date of Service: 11/12/16 Admission Dx/Problem (Free Text): 1. CHF 2. Hyponatremia 3. Diabetes mellitus 4. Nonspecific fatigue with diffuse arthralgias Subjective Update: As below Functional Status: Reports: Pain Controlled, Tolerating Diet, Ambulating, Urinating. Denies: New Symptoms, Incentive Spirometry Pain Score: 0 - Review of Systems General: Reports: Other (No arthralgias today). Denies: Fever, Weakness, Fatigue (Resolved), Malaise, Chills, Night Sweats, Appetite (Appetite good) HEENT: Reports: Glasses. Denies: Ear Pain, Eye Pain, Headaches, Sinus Congestion, Sore Throat, Rhinitis, Visual Changes Pulmonary: Reports: No Symptoms. Denies: Shortness of Breath, Pleuritic Chest Pain, Cough, Sputum, Wheezing Cardiovascular: Reports: No Symptoms. Denies: Chest Pain, Palpitations, Dyspnea on Exertion, Orthopnea, PND, Edema, Lightheadedness Gastrointestinal: Reports: No Symptoms, Other (Normal bowel movement this morning). Denies: Abdominal Pain, Constipation, Decreased Appetite, Diarrhea, Difficulty Swallowing, Flatus, Hematochezia, Melena, Nausea, Vomiting Genitourinary: Reports: No Symptoms. Denies: Dysuria, Frequency, Burning, Pain , Urgency, Incontinence, Hematuria, Retention, Flank Pain Musculoskeletal: Reports: No Symptoms. Denies: Neck Pain, Shoulder Pain, Arm Pain, Hand Pain, Back Pain, Joint Pain, Joint Swelling Skin: Reports: No Symptoms. Denies: Diaphoresis, Bruising Neurological: Reports: No Symptoms. Denies: Confusion (Resolved questionable borderline intermittent confusion), Dizziness, Headache, Numbness, Paresthesia, Tingling, Trouble Speaking, Difficulty Walking, Weakness, Change in Speech Psychiatric: Reports: No Symptoms. Denies: Confusion, Depression, Anxiety, Agitation, Cravings, Hallucinations - Patient Data Vitals - Most Recent: Last Vital Signs Temp 36.8 C 11/12/16 08:00 Pulse 72 11/12/16 08:00 Resp 16 11/12/16 08:00 BP 129/65 11/12/16 08:25 Pulse Ox 100 11/12/16 08:00 Vital Signs - 24 hr 11/11/16 11/11/16 11/11/16 11:40 16:00 20:00 Temperature [ 36.1 C 37.6 C Oral] Temperature [ 37.0 C Temporal] Pulse, 70 73 77 Peripheral [ Pulse Oximetry] Respiratory 16 16 16 Rate Blood Pressure Blood Pressure 119/69 108/67 130/63 [Right Upper Arm] O2 Sat by Pulse 98 100 100 Oximetry 11/12/16 11/12/16 08:00 08:25 Temperature [ Oral] Temperature [ 36.8 C Temporal] Pulse, 72 Peripheral [ Pulse Oximetry] Respiratory 16 Rate Blood Pressure 129/65 Blood Pressure 129/65 [Right Upper Arm] O2 Sat by Pulse 100 Oximetry Weight - Most Recent: 82.826 kg (Increased 2.5 kg since yesterday) I&O - Last 24 Hours: Intake & Output 11/11/16 11/12/16 11/12/16 22:59 06:59 14:59 Intake Total 240 500 Output Total 500 400 Balance 240 -500 100 Imaging Impressions - Last 24 Hours: None Lab Results Last 24 Hours: Laboratory Results - last 24 hr 11/11/16 11/11/16 11/11/16 Range/Units 07:26 11:39 16:59 WBC (4.0-10.2) K/uL RBC (4.33-5.41) M/uL Hgb (13.1-16.8) g/dL Hct (39.0-49.0) % MCV (84.0-98.0) fL MCH (28.2-33.3) pg MCHC (31.7-36.0) g/dL RDW (11.2-14.1) % Plt Count (150-350) K/uL Neut % (Auto) (45.0-80.0) % Lymph % (Auto) (10.0-50.0) % Wright % (Auto) (2.0-14.0) % Eos % (Auto) (0.0-5.0) % Baso % (Auto) (0.0-2.0) % Neut # (Auto) (1.40-7.00) K/uL Lymph # (Auto) (0.50-3.50) K/uL Wright # (Auto) (0.00-1.00) K/uL Eos # (Auto) (0.00-0.50) K/uL Baso # (Auto) (0.00-0.20) K/uL Sodium (136-145) mmol/L Potassium (3.5-5.1) mmol/L Chloride (98-107) mmol/L Carbon Dioxide (21.0-32.0) mmol/L BUN (7-18) mg/dL Creatinine (0.51-1.17) mg/dL Est Cr Clr Drug Dosing mL/min Estimated GFR (MDRD) mL/min Glucose (74-106) mg/dL POC Glucose 175 H 158 H 158 H (65-110) mg/dl Calcium (8.5-10.1) mg/dL Total Bilirubin (0.2-1.0) mg/dL AST (15-37) U/L ALT (12-78) U/L Alkaline Phosphatase (46-116) IU/L Total Protein (6.4-8.2) g/dL Albumin (3.4-5.0) g/dL 11/11/16 11/12/16 11/12/16 Range/Units 21:09 03:30 06:40 WBC (4.0-10.2) K/uL RBC (4.33-5.41) M/uL Hgb (13.1-16.8) g/dL Hct (39.0-49.0) % MCV (84.0-98.0) fL MCH (28.2-33.3) pg MCHC (31.7-36.0) g/dL RDW (11.2-14.1) % Plt Count (150-350) K/uL Neut % (Auto) (45.0-80.0) % Lymph % (Auto) (10.0-50.0) % Wright % (Auto) (2.0-14.0) % Eos % (Auto) (0.0-5.0) % Baso % (Auto) (0.0-2.0) % Neut # (Auto) (1.40-7.00) K/uL Lymph # (Auto) (0.50-3.50) K/uL Wright # (Auto) (0.00-1.00) K/uL Eos # (Auto) (0.00-0.50) K/uL Baso # (Auto) (0.00-0.20) K/uL Sodium 130 L (136-145) mmol/L Potassium 3.9 (3.5-5.1) mmol/L Chloride 98 (98-107) mmol/L Carbon Dioxide 21.4 (21.0-32.0) mmol/L BUN 15 (7-18) mg/dL Creatinine 0.95 (0.51-1.17) mg/dL Est Cr Clr Drug Dosing 71.68 mL/min Estimated GFR (MDRD) > 60 mL/min Glucose 170 H (74-106) mg/dL POC Glucose 240 H 173 H (65-110) mg/dl Calcium 7.7 L (8.5-10.1) mg/dL Total Bilirubin 0.9 (0.2-1.0) mg/dL AST 13 L (15-37) U/L ALT 19 (12-78) U/L Alkaline Phosphatase 70 (46-116) IU/L Total Protein 6.2 L (6.4-8.2) g/dL Albumin 3.0 L (3.4-5.0) g/dL 11/12/16 11/12/16 Range/Units 06:40 07:15 WBC 7.7 (4.0-10.2) K/uL RBC 3.68 L (4.33-5.41) M/uL Hgb 11.7 L (13.1-16.8) g/dL Hct 32.4 L (39.0-49.0) % MCV 88.0 (84.0-98.0) fL MCH 31.8 (28.2-33.3) pg MCHC 36.1 H (31.7-36.0) g/dL RDW 11.9 (11.2-14.1) % Plt Count 194 (150-350) K/uL Neut % (Auto) 68.6 (45.0-80.0) % Lymph % (Auto) 17.3 (10.0-50.0) % Wright % (Auto) 12.8 (2.0-14.0) % Eos % (Auto) 1.0 (0.0-5.0) % Baso % (Auto) 0.3 (0.0-2.0) % Neut # (Auto) 5.31 (1.40-7.00) K/uL Lymph # (Auto) 1.34 (0.50-3.50) K/uL Wright # (Auto) 0.99 (0.00-1.00) K/uL Eos # (Auto) 0.08 (0.00-0.50) K/uL Baso # (Auto) 0.02 (0.00-0.20) K/uL Sodium (136-145) mmol/L Potassium (3.5-5.1) mmol/L Chloride (98-107) mmol/L Carbon Dioxide (21.0-32.0) mmol/L BUN (7-18) mg/dL Creatinine (0.51-1.17) mg/dL Est Cr Clr Drug Dosing mL/min Estimated GFR (MDRD) mL/min Glucose (74-106) mg/dL POC Glucose 133 H (65-110) mg/dl Calcium (8.5-10.1) mg/dL Total Bilirubin (0.2-1.0) mg/dL AST (15-37) U/L ALT (12-78) U/L Alkaline Phosphatase (46-116) IU/L Total Protein (6.4-8.2) g/dL Albumin (3.4-5.0) g/dL Paul Results Last 24 Hours: Microbiology 11/10/16 03:50 Urine, Clean Catch Urine Culture - Preliminary NO GROWTH AFTER 1 DAY 11/10/16 16:30 Blood - Venous - Lab Draw Aerobic Blood Culture - Preliminary NO GROWTH AFTER 1 DAY 11/10/16 16:30 Blood - Venous - Lab Draw Anaerobic Blood Culture - Preliminary NO GROWTH AFTER 1 DAY 11/10/16 16:20 Blood - Venous Aerobic Blood Culture - Preliminary NO GROWTH AFTER 1 DAY 11/10/16 16:20 Blood - Venous Anaerobic Blood Culture - Preliminary NO GROWTH AFTER 1 DAY Med Orders - Current: Current Medications Aspirin (Halfprin) 81 mg PO DAILY COUNTS INCLUDE 234 BEDS AT THE [facility] Last Admin: 11/12/16 08:25 Dose: 81 mg Atorvastatin Calcium (Lipitor) 10 mg PO DAILY COUNTS INCLUDE 234 BEDS AT THE [facility] Last Admin: 11/12/16 08:26 Dose: 10 mg Famotidine (Pepcid) 20 mg IVPUSH BID COUNTS INCLUDE 234 BEDS AT THE [facility] Last Admin: 11/12/16 08:27 Dose: 20 mg Ceftriaxone Sodium 1 gm/ (Sodium Chloride) 100 mls @ 200 mls/hr IV Q12H COUNTS INCLUDE 234 BEDS AT THE [facility] Last Admin: 11/12/16 08:33 Dose: 200 mls/hr Sodium Chloride (Sodium Chloride 3%) 500 mls @ 100 mls/hr IV ASDIRECTED COUNTS INCLUDE 234 BEDS AT THE [facility] Last Admin: 11/12/16 10:12 Dose: 100 mls/hr Insulin Aspart (Novolog) 0 unit SUBCUT QIDACANDBED COUNTS INCLUDE 234 BEDS AT THE [facility] PRN Reason: Protocol Last Admin: 11/12/16 08:23 Dose: Not Given Levothyroxine Sodium (Levothyroxine) 25 mcg PO DAILY COUNTS INCLUDE 234 BEDS AT THE [facility] Last Admin: 11/12/16 08:24 Dose: 25 mcg Lisinopril (Prinivil) 10 mg PO DAILY COUNTS INCLUDE 234 BEDS AT THE [facility] Last Admin: 11/12/16 08:25 Dose: 10 mg Magnesium Hydroxide (Milk Of Magnesia) 30 ml PO DAILY PRN PRN Reason: Constipation Metformin HCl (Glucophage Xr) 500 mg PO BID COUNTS INCLUDE 234 BEDS AT THE [facility] Last Admin: 11/12/16 08:25 Dose: 500 mg Sodium Chloride (Saline Flush) 10 ml FLUSH ASDIRECTED PRN PRN Reason: Keep Vein Open Last Admin: 11/12/16 10:14 Dose: 10 ml Discontinued Medications Aspirin (Halfprin) 81 mg PO DAILY COUNTS INCLUDE 234 BEDS AT THE [facility] Atorvastatin Calcium (Lipitor) 10 mg PO DAILY COUNTS INCLUDE 234 BEDS AT THE [facility] Ceftriaxone Sodium (Rocephin) 1 gm IV Q12H COUNTS INCLUDE 234 BEDS AT THE [facility] Ceftriaxone Sodium (Rocephin) 1 gm IVPUSH Q12H COUNTS INCLUDE 234 BEDS AT THE [facility] Last Admin: 11/11/16 07:38 Dose: 1 gm Lactated Ringer's (Ringers, Lactated) 1,000 mls @ 100 mls/hr IV ASDIRECTED COUNTS INCLUDE 234 BEDS AT THE [facility] Last Admin: 11/11/16 18:52 Dose: 100 mls/hr Sodium Chloride (Sodium Chloride 3%) 500 mls @ 50 mls/hr IV ASDIRECTED COUNTS INCLUDE 234 BEDS AT THE [facility] Sodium Chloride (Normal Saline) 500 mls @ 50 mls/hr IV .BOLUS ONE Stop: 11/12/16 07:26 Last Admin: 11/11/16 21:52 Dose: 50 mls/hr Insulin Aspart (Novolog) 0 unit SUBCUT Q6H COUNTS INCLUDE 234 BEDS AT THE [facility] PRN Reason: Protocol Last Admin: 11/10/16 20:54 Dose: 2 units Levothyroxine Sodium (Levothyroxine) 25 mcg PO ACBREAKFAST COUNTS INCLUDE 234 BEDS AT THE [facility] Lisinopril (Prinivil) 10 mg PO DAILY COUNTS INCLUDE 234 BEDS AT THE [facility] Metformin HCl (Glucophage Xr) 500 mg PO BIDMEALS COUNTS INCLUDE 234 BEDS AT THE [facility] Last Admin: 11/10/16 20:50 Dose: 500 mg - Exam Quality Assessment: DVT Prophylaxis. No: Supplemental Oxygen, Central Line/PICC , Urine Catheter, Skin Breakdown, Restraints General: Alert, Oriented, Cooperative, No Acute Distress HEENT: Pupils Equal, Pupils Reactive, EOMI, Mucous Membr. Moist/Dinosaur, Other ( Glasses) Neck: Supple, Trachea Midline, No JVD, No Thyromegaly, Carotid Bruit (Mild bilateral carotid bruits). No: Lymphadenopathy Lungs: Clear to Auscultation, Normal Respiratory Effort. No: Rales, Rub, Wheezing Cardiovascular: Regular Rate, Regular Rhythm, No Murmurs. No: Gallops, Rubs GI/Abdominal Exam: Normal Bowel Sounds, Soft, Non-Tender, No Organomegaly, No Distention, No Abnormal Bruit, No Mass, Pelvis Stable. No: Guarding (Male) Exam: Deferred Back Exam: Normal Inspection, Full Range of Motion. No: CVA Tenderness (L), CVA Tenderness (R), Muscle Spasm Extremities: Normal Inspection, Normal Range of Motion, Non-Tender, No Pedal Edema, Normal Capillary Refill. No: Ally's Sign Peripheral Pulses: 2+: Radial (L), Radial (R), Dorsalis Pedis (L), Dorsalis Pedis (R) Skin: Warm, Dry, Intact Neurological: No New Focal Deficit, Other (No clinical orthostasis or confusion) Psy/Mental Status: Alert, Normal Affect, Normal Mood. No: Agitated, Hallucinations, Withdrawal Symptoms - Problem List & Annotations (1) CHF (congestive heart failure) SNOMED Code(s): 52574807 Code(s): I50.9 - HEART FAILURE, UNSPECIFIED Status: Acute Priority: High Current Visit: Yes Onset Date: 11/10/16 Qualifiers: Congestive heart failure type: unspecified congestive heart failure type Congestive heart failure chronicity: acute Qualified Code(s): I50.9 - Heart failure, unspecified Annotation/Comment:: Borderline CHF by chest x-ray and BNP on admission with negative workup for acute [place] and no evidence of EKG changes yesterday. Repeat blood work in the a.m. No recent chest pain or anginal type symptoms. Note multiple cardiac risk factors, however. Echocardiogram as an outpatient secondary to availability. Chest pain protocol was not initiated in the emergency room secondary to absence of anginal type symptoms. Cardiology consultation and/or further workup, including Cardiolite stress test, etc., depending on his clinical course (2) Hyponatremia SNOMED Code(s): 24828804 Code(s): E87.1 - HYPO-OSMOLALITY AND HYPONATREMIA Status: Acute Priority : High Current Visit: Yes Onset Date: 11/10/16 Annotation/Comment:: Persistent sodium of 130 today. Will change to 3% sodium chloride 500 mL over the next 10 hours with subsequent initiation of lactated Ringer's tonight. No confusion or sequelae from his hyponatremia at this time, including no neurological deficits, etc. Dietary issues discussed with the patient and his . (3) Diabetes mellitus SNOMED Code(s): 13100575 Code(s): E11.9 - TYPE 2 DIABETES MELLITUS WITHOUT COMPLICATIONS Status: Chronic Priority: Medium Current Visit: Yes Qualifiers: Diabetes mellitus type: type 2 Diabetes mellitus complication status: without complication Diabetes mellitus ocean transportation intermediary insulin use: without ocean transportation intermediary use Qualified Code(s): E11.9 - Type 2 diabetes mellitus without complications Annotation/Comment:: Variable during this hospitalization, however under good control with sliding scale. Note recently under poor control with recently increased metformin by his regular provider prior to admission. Glycosylated hemoglobin increased to 9.2% yesterday with consideration of possible insulin therapy in this future and close follow-up by his regular provider. Initiate diabetic teaching during this hospitalization (4) Fatigue SNOMED Code(s): 86536419 Code(s): R53.83 - OTHER FATIGUE Status: Acute Priority: High Current Visit: Yes Onset Date: ~11/05/16 Qualifiers: Fatigue type: unspecified Qualified Code(s): R53.83 - Other fatigue Annotation/Comment:: Nonspecific fatigue on admission him a however resolved at this time as above. Lyme disease and West Nile virus evaluation results pending , although no known history of infection (5) Hyperlipidemia SNOMED Code(s): 29268293 Code(s): E78.5 - HYPERLIPIDEMIA, UNSPECIFIED Status: Chronic Priority: Medium Current Visit: Yes Qualifiers: Hyperlipidemia type: mixed hyperlipidemia Qualified Code(s): E78.2 - Mixed hyperlipidemia Annotation/Comment:: Currently under therapy, lipid panel yesterday showed significant persistent dyslipidemia. Consider further medication adjustments, however note somewhat elevated TSH, which will be increased at this time secondary to his previous nonspecific fatigue, despite his previous recent medication noncompliance (6) Hypothyroidism (acquired) SNOMED Code(s): 414253709 Code(s): E03.9 - HYPOTHYROIDISM, UNSPECIFIED Status: Acute Priority: Medium Current Visit: Yes Annotation/Comment:: As above. TSH should be repeated in 4 weeks by his regular provider (7) Osteoarthritis SNOMED Code(s): 248792565 Code(s): M19.90 - UNSPECIFIED OSTEOARTHRITIS, UNSPECIFIED SITE Status: Chronic Priority: Medium Current Visit: Yes Qualifiers: Osteoarthritis location: multiple joints Osteoarthritis type: primary Qualified Code(s): M15.0 - Primary generalized (osteo)arthritis Annotation/Comment:: Stable by history (8) Hypocalcemia SNOMED Code(s): 8530465 Code(s): E83.51 - HYPOCALCEMIA Status: Acute Priority: Medium Current Visit: Yes Onset Date: 11/12/16 Annotation/Comment:: Initiate Tums today with close follow-up by his regular provider (9) Hypoalbuminemia SNOMED Code(s): 662639265 Code(s): E88.09 - OTH DISORDERS OF PLASMA-PROTEIN METABOLISM, NEC Status: Acute Priority: Medium Current Visit: Yes Onset Date: 11/12/16 Annotation/Comment:: Initiate high-protein Glucerna supplements as snacks with dietary issues also discussed today - Problem List Review Problem List Initiated/Reviewed/Updated: Yes - My Orders Last 24 Hours: My Active Orders 11/11/16 10:01 Magnesium Hydroxide [Milk of Magnesia] 30 ml PO DAILY PRN 11/11/16 20:00 cefTRIAXone [Rocephin] 1 gm Sodium Chloride 0.9% [Normal Saline] 100 ml IV Q12H 11/12/16 09:30 Sodium Chloride 3% 500 ml IV ASDIRECTED 11/12/16 Breakfast Fluid Restriction [DIET] - Assessment Assessment:: As above - Plan Plan:: As above. Extensive precautions were given to the patient and his , who are in agreement with the treatment plan. Probable hospital discharge tomorrow
[2016-11-12] MEDS: Calcium Carbonate 750 MG Tab.Chew PO SCH (19:42)
[2016-11-12] MEDS: Lactated Ringers 1,000 ML IV SCH (21:08)
[2016-11-13 07:35] LABS: CHLORIDE,CL 100 mmol/L (98-107); SODIUM,NA 132 mmol/L (136-145)
[2016-11-13] MEDS: metFORMIN 500 MG Tab.ER PO SCH ×3 (07:54→18:21)
[2016-11-13] MEDS: Levothyroxine 50 MCG Tab PO SCH (07:54)
[2016-11-13] MEDS: Famotidine 20 MG/2 ML SDV IVPUSH SCH ×3 (07:54→18:21)
[2016-11-13] MEDS: atorvaSTATin 10 MG Tab PO SCH (07:54)
[2016-11-13] MEDS: Aspirin 81 MG Tab.EC PO SCH (07:54)
[2016-11-13] MEDS: Lisinopril 10 MG Tab PO SCH (07:54)
[2016-11-13] MEDS: cefTRIAXone 1 GM in Sodium Chloride 0.9% 100 ML IV SCH ×2 (07:55→20:31)
[2016-11-13] MEDS: Insulin Aspart 100 Units/ML 3 ML Pen SUBCUT SCH ×4 (07:56→20:45)
[2016-11-13] MEDS: Sodium Chloride 0.9% 10 ML Syringe FLUSH PRN ×2 (07:57→20:34)
[2016-11-13] MEDS ORDERED: Sodium Chloride 3% 500 ML IV SCH (10:45)
--- NOTE | 2016-11-13 11:10 | PCM.PN ---
- General Info Date of Service: 11/13/16 Admission Dx/Problem (Free Text): 1. CHF 2. Hyponatremia 3. Diabetes mellitus 4. Nonspecific fatigue with diffuse arthralgias Subjective Update: As below Functional Status: Reports: Pain Controlled, Tolerating Diet, Ambulating, Urinating. Denies: New Symptoms, Incentive Spirometry Pain Score: 0 - Review of Systems General: Reports: No Symptoms. Denies: Fever (No fever this morning with temperature 37.6 at 18:00 hours yesterday and 37.4 at midnight ), Weakness, Fatigue, Malaise, Chills, Night Sweats, Appetite (Appetite good) HEENT: Reports: Glasses. Denies: Contact Lenses, Dysphasia, Ear Pain, Eye Pain , Headaches, Post Nasal Drip, Sinus Congestion, Sore Throat, Rhinitis, Visual Changes Pulmonary: Reports: No Symptoms. Denies: Shortness of Breath, Pleuritic Chest Pain, Cough, Sputum, Wheezing Cardiovascular: Reports: No Symptoms. Denies: Chest Pain, Palpitations, Dyspnea on Exertion, Orthopnea, PND, Edema, Lightheadedness Gastrointestinal: Reports: No Symptoms, Other (Normal bowel movement yesterday afternoon). Denies: Abdominal Pain, Constipation, Decreased Appetite, Diarrhea , Difficulty Swallowing, Flatus, Hematochezia, Melena, Nausea, Vomiting Genitourinary: Reports: No Symptoms. Denies: Dysuria, Frequency, Burning, Pain , Urgency, Incontinence, Retention, Flank Pain Musculoskeletal: Reports: No Symptoms. Denies: Neck Pain, Shoulder Pain, Arm Pain, Back Pain, Leg Pain Skin: Reports: No Symptoms. Denies: Diaphoresis, Bruising, Pruritis Neurological: Reports: No Symptoms. Denies: Confusion, Dizziness, Headache, Numbness, Paresthesia, Tingling, Weakness Psychiatric: Reports: No Symptoms. Denies: Confusion, Depression, Anxiety, Agitation, Hallucinations - Patient Data Vitals - Most Recent: Last Vital Signs Temp 36.7 C 11/13/16 06:00 Pulse 77 11/13/16 06:00 Resp 15 11/13/16 06:00 BP 139/83 11/13/16 07:54 Pulse Ox 99 11/13/16 06:00 Vital Signs - 24 hr 11/12/16 11/13/16 11/13/16 18:00 00:00 06:00 Temperature [ 37.6 C 36.7 C Oral] Temperature [ 37.4 C Temporal] Pulse, 78 70 77 Peripheral [ Pulse Oximetry] Respiratory 17 16 15 Rate Blood Pressure Blood Pressure 136/83 133/64 139/83 [Right Upper Arm] O2 Sat by Pulse 100 100 99 Oximetry 11/13/16 07:54 Temperature [ Oral] Temperature [ Temporal] Pulse, Peripheral [ Pulse Oximetry] Respiratory Rate Blood Pressure 139/83 Blood Pressure [Right Upper Arm] O2 Sat by Pulse Oximetry Weight - Most Recent: 82.191 kg I&O - Last 24 Hours: Intake & Output 11/12/16 11/13/16 11/13/16 22:59 06:59 14:59 Intake Total 1830 620 Output Total 300 900 Balance 1530 -280 Imaging Impressions - Last 24 Hours: Chest x-ray, PA and lateral, shows evidence of mild COPD changes with additional moderate osteoarthritic and osteoporotic changes in the thoracic spine with mild scoliosis. Mild pulmonary hypertension/centralized CHF with additional mild prominence of the proximal aortic arch but no significant cardiomegaly and no pneumothorax, etc. noted Lab Results Last 24 Hours: Laboratory Results - last 24 hr 11/12/16 11/12/16 11/12/16 Range/Units 11:00 17:16 21:07 WBC (4.0-10.2) K/uL RBC (4.33-5.41) M/uL Hgb (13.1-16.8) g/dL Hct (39.0-49.0) % MCV (84.0-98.0) fL MCH (28.2-33.3) pg MCHC (31.7-36.0) g/dL RDW (11.2-14.1) % Plt Count (150-350) K/uL Neut % (Auto) (45.0-80.0) % Lymph % (Auto) (10.0-50.0) % [place] % (Auto) (2.0-14.0) % Eos % (Auto) (0.0-5.0) % Baso % (Auto) (0.0-2.0) % Neut # (Auto) (1.40-7.00) K/uL Lymph # (Auto) (0.50-3.50) K/uL [place] # (Auto) (0.00-1.00) K/uL Eos # (Auto) (0.00-0.50) K/uL Baso # (Auto) (0.00-0.20) K/uL Sodium (136-145) mmol/L Potassium (3.5-5.1) mmol/L Chloride (98-107) mmol/L Carbon Dioxide (21.0-32.0) mmol/L BUN (7-18) mg/dL Creatinine (0.51-1.17) mg/dL Est Cr Clr Drug Dosing mL/min Estimated GFR (MDRD) mL/min Glucose (74-106) mg/dL POC Glucose 235 H 160 H 184 H (65-110) mg/dl Calcium (8.5-10.1) mg/dL Creatine Kinase (26-308) U/L Creatine Kinase Index (0.0-2.5) % CK-MB (CK-2) (0.00-3.60) ng/mL Troponin I (0.000-0.056) ng/mL C-Reactive Protein (<=0.9) mg/dL Gia-[id number] Pept (0-125) pg/mL 11/12/16 11/13/16 11/13/16 Range/Units 23:46 06:35 06:35 WBC 6.6 (4.0-10.2) K/uL RBC 3.69 L (4.33-5.41) M/uL Hgb 11.7 L (13.1-16.8) g/dL Hct 32.7 L (39.0-49.0) % MCV 88.6 (84.0-98.0) fL MCH 31.7 (28.2-33.3) pg MCHC 35.8 (31.7-36.0) g/dL RDW 12.0 (11.2-14.1) % Plt Count 210 (150-350) K/uL Neut % (Auto) 65.8 (45.0-80.0) % Lymph % (Auto) 18.7 (10.0-50.0) % [place] % (Auto) 12.8 (2.0-14.0) % Eos % (Auto) 2.4 (0.0-5.0) % Baso % (Auto) 0.3 (0.0-2.0) % Neut # (Auto) 4.35 (1.40-7.00) K/uL Lymph # (Auto) 1.24 (0.50-3.50) K/uL [place] # (Auto) 0.85 (0.00-1.00) K/uL Eos # (Auto) 0.16 (0.00-0.50) K/uL Baso # (Auto) 0.02 (0.00-0.20) K/uL Sodium 132 L (136-145) mmol/L Potassium 4.0 (3.5-5.1) mmol/L Chloride 100 (98-107) mmol/L Carbon Dioxide 23.0 (21.0-32.0) mmol/L BUN 12 (7-18) mg/dL Creatinine 0.91 (0.51-1.17) mg/dL Est Cr Clr Drug Dosing 74.83 mL/min Estimated GFR (MDRD) > 60 mL/min Glucose 164 H (74-106) mg/dL POC Glucose 165 H (65-110) mg/dl Calcium 8.2 L (8.5-10.1) mg/dL Creatine Kinase 73 (26-308) U/L Creatine Kinase Index 0.8 (0.0-2.5) % CK-MB (CK-2) 0.60 (0.00-3.60) ng/mL Troponin I 0.015 (0.000-0.056) ng/mL C-Reactive Protein 0.1 (<=0.9) mg/dL [id number] Pept 294 H (0-125) pg/mL Paul Results Last 24 Hours: Microbiology 11/10/16 03:50 Urine, Clean Catch Urine Culture - Final NO GROWTH AFTER 2 DAYS 11/10/16 16:30 Blood - Venous - Lab Draw Aerobic Blood Culture - Preliminary NO GROWTH AFTER 2 DAYS 11/10/16 16:30 Blood - Venous - Lab Draw Anaerobic Blood Culture - Preliminary NO GROWTH AFTER 2 DAYS 11/10/16 16:20 Blood - Venous Aerobic Blood Culture - Preliminary NO GROWTH AFTER 2 DAYS 11/10/16 16:20 Blood - Venous Anaerobic Blood Culture - Preliminary NO GROWTH AFTER 2 DAYS Med Orders - Current: Current Medications Aspirin (Halfprin) 81 mg PO DAILY [facility] Last Admin: 11/13/16 07:54 Dose: 81 mg Atorvastatin Calcium (Lipitor) 10 mg PO DAILY [facility] Last Admin: 11/13/16 07:54 Dose: 10 mg Calcium Carbonate/Glycine (Tums Extra Strength) 1,500 mg PO BEDTIME [facility] Last Admin: 11/12/16 19:42 Dose: 1,500 mg Famotidine (Pepcid) 20 mg IVPUSH BID [facility] Last Admin: 11/13/16 07:54 Dose: 20 mg Ceftriaxone Sodium 1 gm/ (Sodium Chloride) 100 mls @ 200 mls/hr IV Q12H [facility] Last Admin: 11/13/16 07:55 Dose: 200 mls/hr Lactated Ringer's (Ringers, Lactated) 1,000 mls @ 80 mls/hr IV ASDIRECTED [facility] Last Admin: 11/12/16 21:08 Dose: 60 mls/hr Sodium Chloride (Sodium Chloride 3%) 500 mls @ 999 mls/hr IV ASDIRECTED [facility] Sodium Chloride (Sodium Chloride 3%) 500 mls @ 999 mls/hr IV ASDIRECTED [facility] Insulin Aspart (Novolog) 0 unit SUBCUT QIDACANDBED [facility] PRN Reason: Protocol Last Admin: 11/13/16 07:56 Dose: Not Given Levothyroxine Sodium (Synthroid) 50 mcg PO DAILY [facility] Last Admin: 11/13/16 07:54 Dose: 50 mcg Lisinopril (Prinivil) 10 mg PO DAILY [facility] Last Admin: 11/13/16 07:54 Dose: 10 mg Magnesium Hydroxide (Milk Of Magnesia) 30 ml PO DAILY PRN PRN Reason: Constipation Metformin HCl (Glucophage Xr) 500 mg PO BID [facility] Last Admin: 11/13/16 07:54 Dose: 500 mg Sodium Chloride (Saline Flush) 10 ml FLUSH ASDIRECTED PRN PRN Reason: Keep Vein Open Last Admin: 11/13/16 07:57 Dose: 10 ml Discontinued Medications Aspirin (Halfprin) 81 mg PO DAILY [facility] Atorvastatin Calcium (Lipitor) 10 mg PO DAILY [facility] Ceftriaxone Sodium (Rocephin) 1 gm IV Q12H [facility] Ceftriaxone Sodium (Rocephin) 1 gm IVPUSH Q12H [facility] Last Admin: 11/11/16 07:38 Dose: 1 gm Lactated Ringer's (Ringers, Lactated) 1,000 mls @ 100 mls/hr IV ASDIRECTED [facility] Last Admin: 11/11/16 18:52 Dose: 100 mls/hr Sodium Chloride (Sodium Chloride 3%) 500 mls @ 50 mls/hr IV ASDIRECTED [facility] Sodium Chloride (Normal Saline) 500 mls @ 50 mls/hr IV .BOLUS ONE Stop: 11/12/16 07:26 Last Admin: 11/11/16 21:52 Dose: 50 mls/hr Sodium Chloride (Sodium Chloride 3%) 500 mls @ 100 mls/hr IV ASDIRECTED [facility] Last Admin: 11/12/16 10:12 Dose: 100 mls/hr Insulin Aspart (Novolog) 0 unit SUBCUT Q6H [facility] PRN Reason: Protocol Last Admin: 11/10/16 20:54 Dose: 2 units Levothyroxine Sodium (Levothyroxine) 25 mcg PO ACBREAKFAST [facility] Levothyroxine Sodium (Levothyroxine) 25 mcg PO DAILY [facility] Last Admin: 11/12/16 08:24 Dose: 25 mcg Lisinopril (Prinivil) 10 mg PO DAILY [facility] Metformin HCl (Glucophage Xr) 500 mg PO BIDMEALS [facility] Last Admin: 11/10/16 20:50 Dose: 500 mg - Exam Quality Assessment: DVT Prophylaxis. No: Supplemental Oxygen, Central Line/PICC , Urine Catheter, Skin Breakdown, Restraints General: Alert, Oriented, Cooperative, No Acute Distress HEENT: Pupils Equal, Pupils Reactive, EOMI, Mucous Membr. Moist/[place], Other ( Glasses) Neck: Supple, Trachea Midline, No JVD, No Thyromegaly. No: Lymphadenopathy Lungs: Normal Respiratory Effort, Rales (Mild bilateral basilar rales). No: Rhonchi, Rub, Stridor, Wheezing Cardiovascular: Regular Rate, Regular Rhythm, No Murmurs. No: Gallops, Rubs GI/Abdominal Exam: Normal Bowel Sounds, Soft, Non-Tender, No Organomegaly, No Distention, No Abnormal Bruit, No Mass, Pelvis Stable. No: Guarding (Male) Exam: Deferred Back Exam: Normal Inspection, Full Range of Motion. No: CVA Tenderness (L), CVA Tenderness (R), Muscle Spasm Extremities: Normal Inspection, Normal Range of Motion, Non-Tender, No Pedal Edema, Normal Capillary Refill. No: Ally's Sign Peripheral Pulses: 2+: Radial (L), Radial (R), Dorsalis Pedis (L), Dorsalis Pedis (R) Skin: Warm, Dry, Intact. No: Ecchymosis Neurological: No New Focal Deficit, Other (No clinical orthostasis) Psy/Mental Status: Alert, Normal Affect, Normal Mood - Problem List & Annotations (1) CHF (congestive heart failure) SNOMED Code(s): 71816186 Code(s): I50.9 - HEART FAILURE, UNSPECIFIED Status: Acute Priority: High Current Visit: Yes Onset Date: 11/10/16 Qualifiers: Congestive heart failure type: unspecified congestive heart failure type Congestive heart failure chronicity: acute Qualified Code(s): I50.9 - Heart failure, unspecified Annotation/Comment:: Borderline CHF by chest x-ray and BNP somewhat improved despite current aggressive IV fluids as below. Negative negative workup for acute CA and no evidence of EKG changes. Repeat blood work in the a.m. No recent chest pain or anginal type symptoms. Note multiple cardiac risk factors, however. Echocardiogram as an outpatient secondary to availability. Chest pain protocol was not initiated in the emergency room secondary to absence of anginal type symptoms. Cardiology consultation and/or further workup, including Cardiolite stress test, etc., depending on his clinical course (2) Hyponatremia SNOMED Code(s): 56849262 Code(s): E87.1 - HYPO-OSMOLALITY AND HYPONATREMIA Status: Acute Priority : High Current Visit: Yes Onset Date: 11/10/16 Annotation/Comment:: Persistent sodium of 132 today despite 3% sodium chloride administration yesterday and continuation of lactated Ringer's thereafter. Various therapeutic options were given to the patient and his , who request continued hospitalization for now. Two additional 500 ml infusions by IV bolus of 3% sodium chloride today with subsequent with subsequent reinitiation of lactated Ringer's. No confusion or sequelae from his hyponatremia at this time, including no neurological deficits, etc. Dietary issues discussed with the patient and his . 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 Various therapeutic options were given to the patient and his , who are requesting additional low-dose insulin therapy rather than additional oral preparations. Note his diabetes has recently under poor control with recently increased metformin by his regular provider prior to admission. Glycosylated hemoglobin increased to 9.2% during this hospitalization with close follow-up by his regular provider. Continue diabetic teaching today the patient to be instructed on self insulin administration. He already takes Accu-Cheks at home with recommended twice a day NovoLog mix sliding scale at discharge in addition to low-dose Levemir, which was instituted at noon today (4) Fatigue SNOMED Code(s): 05719691 Code(s): R53.83 - OTHER FATIGUE Status: Acute Priority: High Current Visit: Yes Onset Date: ~11/05/16 Qualifiers: Fatigue type: unspecified Qualified Code(s): R53.83 - Other fatigue Annotation/Comment:: Nonspecific fatigue on admission, however resolved at this time as above. Lyme disease and West Nile virus evaluation results are still pending, although no known history of infection. (5) Hyperlipidemia SNOMED Code(s): 52849464 Code(s): E78.5 - HYPERLIPIDEMIA, UNSPECIFIED Status: Chronic Priority: Medium Current Visit: Yes Qualifiers: Hyperlipidemia type: mixed hyperlipidemia Qualified Code(s): E78.2 - Mixed hyperlipidemia Annotation/Comment:: Currently under therapy, lipid panel during this hospitalization showed significant persistent dyslipidemia. Consider further medication adjustments, however note somewhat elevated TSH, which will be increased at this time secondary to his previous nonspecific fatigue, despite his previous recent brief medication noncompliance as per emergency room note (6) Hypothyroidism (acquired) SNOMED Code(s): 790956812 Code(s): E03.9 - HYPOTHYROIDISM, UNSPECIFIED Status: Acute Priority: Medium Current Visit: Yes Annotation/Comment:: As above. TSH should be repeated in 4 weeks by his regular provider (7) Osteoarthritis SNOMED Code(s): 566535094 Code(s): M19.90 - UNSPECIFIED OSTEOARTHRITIS, UNSPECIFIED SITE Status: Chronic Priority: Medium Current Visit: Yes Qualifiers: Osteoarthritis location: multiple joints Osteoarthritis type: primary Qualified Code(s): M15.0 - Primary generalized (osteo)arthritis Annotation/Comment:: Stable by history (8) Hypocalcemia SNOMED Code(s): 5587704 Code(s): E83.51 - HYPOCALCEMIA Status: Acute Priority: Medium Current Visit: Yes Onset Date: 11/12/16 Annotation/Comment:: Initiated Tums yesterday with close follow-up by his regular provider (9) Hypoalbuminemia SNOMED Code(s): 833650172 Code(s): E88.09 - OTH DISORDERS OF PLASMA-PROTEIN METABOLISM, NEC Status: Acute Priority: Medium Current Visit: Yes Onset Date: 11/12/16 Annotation/Comment:: Initiated high-protein Glucerna supplements as snacks yesterday with dietary issues also discussed. Close follow-up by his regular provider (10) Anemia SNOMED Code(s): 383886999 Code(s): D64.9 - ANEMIA, UNSPECIFIED Status: Acute Priority: Medium Current Visit: Yes Qualifiers: Anemia type: unspecified type Qualified Code(s): D64.9 - Anemia, unspecified Annotation/Comment:: Mild stable anemia during this hospital cessation. Workup in the a.m. with additional blood work. Hemoccult stool ordered. No evidence of abdominal pain, GI bleed, etc. - Problem List Review Problem List Initiated/Reviewed/Updated: Yes - My Orders Last 24 Hours: My Active Orders 11/12/16 11:09 Communication Order [RC] ROUTINE 11/12/16 11:11 Communication Order [RC] ROUTINE 11/12/16 11:17 Vital Signs [RC] Q6HR 11/12/16 20:00 Calcium Carbonate [Tums Extra Strength] 1,500 mg PO BEDTIME 11/12/16 21:00 Lactated Ringers [Ringers, Lactated] 1,000 ml IV ASDIRECTED 11/13/16 05:11 Chest 2V [CR] Routine 11/13/16 08:00 Levothyroxine [Synthroid] 50 mcg PO DAILY 11/13/16 10:45 Sodium Chloride 3% 500 ml IV ASDIRECTED Sodium Chloride 3% 500 ml IV ASDIRECTED - Assessment Assessment:: As above - Plan Plan:: As above. Extensive precautions were given to the patient and his , who are in agreement with the treatment plan. Probable hospital discharge tomorrow. public works technician physician assumes care later this afternoon
[2016-11-13] MEDS: Sodium Chloride 3% 500 ML IV SCH ×2 (11:54→12:48)
[2016-11-13] MEDS: Insulin Detemir 100 Units/ML 3 ML Pen SUBCUT SCH (11:55)
[2016-11-13] MEDS: Calcium Carbonate 750 MG Tab.Chew PO SCH (20:31)
[2016-11-13] MEDS: Lactated Ringers 1,000 ML IV SCH (20:40)
[2016-11-14] MEDS: cefTRIAXone 1 GM in Sodium Chloride 0.9% 100 ML IV SCH (08:01)
[2016-11-14] MEDS: Lisinopril 10 MG Tab PO SCH (08:01)
[2016-11-14] MEDS: atorvaSTATin 10 MG Tab PO SCH (08:01)
[2016-11-14] MEDS: Sodium Chloride 0.9% 10 ML Syringe FLUSH PRN (08:01)
[2016-11-14] MEDS: metFORMIN 500 MG Tab.ER PO SCH (08:01)
[2016-11-14] MEDS: Famotidine 20 MG/2 ML SDV IVPUSH SCH (08:01)
[2016-11-14] MEDS: Aspirin 81 MG Tab.EC PO SCH (08:01)
[2016-11-14] MEDS: Insulin Aspart 100 Units/ML 3 ML Pen SUBCUT SCH ×2 (08:02→11:38)
[2016-11-14] MEDS: Insulin Detemir 100 Units/ML 3 ML Pen SUBCUT SCH (08:02)
[2016-11-14] MEDS: Levothyroxine 50 MCG Tab PO SCH (08:02)
[2016-11-14 09:05] LABS: CHLORIDE,CL 102 mmol/L (98-107); SODIUM,NA 135 mmol/L (136-145)
[2016-11-14 13:06] VITALS: BP 121/76
--- NOTE | 2016-11-14 15:41 | PCM.DCSUM1 ---
Discharge Summary - Hospital Course Brief History: Patient admitted for hyponatremia. Additional findings included hypothyroidism and fatigue. Poorly controlled diabetes. - Discharge Data Discharge Date: 11/14/16 Discharge Disposition: Home, Self-Care 01 Condition: Good - Discharge Diagnosis/Problem(s) (1) Hyponatremia SNOMED Code(s): 72715153 ICD Code: E87.1 - HYPO-OSMOLALITY AND HYPONATREMIA Status: Acute Priority : High Current Visit: Yes Onset Date: 11/10/16 Problem Details: Sodium 135 today. Dietary issues discussed with the patient and his . Close follow up with primary provider planned. Weekly lab checks recommended for the next month. Patient will keep track of daily PO fluid intake and knows that excess water intake can dilute sodium downward. May need to take daily salt pills. Given option to consider obtaining electrolyte mix containing sodium to be added to water, as well as adding pinch of natural sea salt to glasses of water consumed to help bolster sodium levels. (2) Hypothyroidism (acquired) SNOMED Code(s): 627917380 ICD Code: E03.9 - HYPOTHYROIDISM, UNSPECIFIED Status: Acute Priority: Medium Current Visit: Yes Problem Details: As above. TSH should be repeated in 4 weeks by his regular provider (3) CHF (congestive heart failure) SNOMED Code(s): 04184714 ICD Code: I50.9 - HEART FAILURE, UNSPECIFIED Status: Acute Priority: High Current Visit: Yes Onset Date: 11/10/16 Problem Details: Borderline CHF by chest x-ray and BNP mildly elevated. Has been receiving IV fluids to help correct hyponatremia which may have contributed to bump in BNP. Qualifiers: Congestive heart failure type: unspecified congestive heart failure type Congestive heart failure chronicity: acute Qualified Code(s): I50.9 - Heart failure, unspecified (4) Fatigue SNOMED Code(s): 64519915 ICD Code: R53.83 - OTHER FATIGUE Status: Acute Priority: High Current Visit: Yes Onset Date: ~11/05/16 Problem Details: Nonspecific fatigue on admission, however resolved at this time as above. Lyme disease and West Nile virus evaluation results are still pending, although no known history of infection. Qualifiers: Fatigue type: unspecified Qualified Code(s): R53.83 - Other fatigue (5) Diabetes mellitus SNOMED Code(s): 38633695 ICD Code: E11.9 - TYPE 2 DIABETES MELLITUS WITHOUT COMPLICATIONS Status: Chronic Priority: Medium Current Visit: Yes Problem Details: Variable during this hospitalization, however under good control with sliding scale. Various therapeutic options were given to the patient and his , who requested additional low-dose insulin therapy rather than additional oral preparations. Note his diabetes has recently under poor control with recently increased metformin by his regular provider prior to admission. Glycosylated hemoglobin increased to 9.2% during this hospitalization with close follow-up by his regular provider. He already takes Accu-Cheks at home. Discharge on twice a day NovoLog mix sliding scale in addition to low-dose Levemir Qualifiers: Diabetes mellitus type: type 2 Diabetes mellitus complication status: without complication Diabetes mellitus exterminator insulin use: without senior care use Qualified Code(s): E11.9 - Type 2 diabetes mellitus without complications (6) Hyperlipidemia SNOMED Code(s): 10657776 ICD Code: E78.5 - HYPERLIPIDEMIA, UNSPECIFIED Status: Chronic Priority: Medium Current Visit: Yes Problem Details: Currently under therapy, lipid panel during this hospitalization showed significant persistent dyslipidemia. Consider further medication adjustments with primary provider. Qualifiers: Hyperlipidemia type: mixed hyperlipidemia Qualified Code(s): E78.2 - Mixed hyperlipidemia (7) Osteoarthritis SNOMED Code(s): 229134941 ICD Code: M19.90 - UNSPECIFIED OSTEOARTHRITIS, UNSPECIFIED SITE Status: Chronic Priority: Medium Current Visit: Yes Problem Details: Stable by history Qualifiers: Osteoarthritis location: multiple joints Osteoarthritis type: primary Qualified Code(s): M15.0 - Primary generalized (osteo)arthritis (8) Pyuria SNOMED Code(s): 6786382, 876092203, 312703708 ICD Code: N39.0 - URINARY TRACT INFECTION, SITE NOT SPECIFIED Status: Acute Priority: Medium Current Visit: Yes Problem Details: 10-20 WBC noted on UA at time of admission. Patient without complaint of UTI symptoms. Received Rocephin while inpatient. UC was negative. Antibiotics discontinued at discharge. - Patient Summary/Data Complications: none Hospital Course: Sodium level slowly improved using IV fluid therapy. Diabetic teaching given and addition of insulin treatments initiated. Patient's fatigue improved significantly and he says that he feels quite well overall today. - Patient Instructions Diet: Diabetic Diet Activity: As Tolerated Driving: May Drive Today Showering/Bathing: May Shower Other/Special Instructions: Follow up next week with primary provider for repeat labs. - Discharge Plan Prescriptions/Med Rec: Insulin Aspart [NovoLOG] 0 unit SUBCUT QIDACANDBED #1 pen Insulin Detemir [Levemir] 4 unit SUBCUT DAILY #1 pen Home Medications: Home Meds Aspirin [Halfprin] 1 tab PO DAILY 11/10/16 [History] Levothyroxine 1 tab PO DAILY 11/10/16 [History] Lisinopril [Prinivil] 10 mg PO DAILY 11/10/16 [History] atorvaSTATin [Lipitor] 1 tab PO DAILY 11/10/16 [History] metFORMIN [Glucophage XR] 1 tab PO BID 11/10/16 [History] Insulin Aspart [NovoLOG] 0 unit SUBCUT QIDACANDBED #1 pen 11/14/16 [Rx] Insulin Detemir [Levemir] 4 unit SUBCUT DAILY #1 pen 11/14/16 [Rx] Patient Handouts: Type 2 Diabetes Mellitus, Adult, Insulin Treatment for Diabetes, Insulin Aspart injection, How and Where to Give Subcutaneous Injections Using a Syringe and Vial, Hyponatremia, Insulin Detemir injection, Heart Failure, [id number], Blood Glucose Monitoring, Adult, Diabetes Mellitus and Food Forms: ED Department Discharge Referrals: Rosalia Shay PA-C [Primary Care Provider] - - Discharge Summary/Plan Comment DC Time >30 min.: No - General Info Admission Dx/Problem (Free Text: 1. CHF 2. Hyponatremia 3. Diabetes mellitus 4. Nonspecific fatigue with diffuse arthralgias Subjective Update: Patient without complaint. Functional Status: Reports: Pain Controlled, Tolerating Diet, Ambulating, Urinating. Denies: New Symptoms - Review of Systems General: Reports: No Symptoms (no acute changes) HEENT: Reports: No Symptoms (no acute changes) Pulmonary: Reports: No Symptoms (no acute changes) Cardiovascular: Reports: No Symptoms (no acute changes) Gastrointestinal: Reports: No Symptoms (no acute changes) Genitourinary: Reports: No Symptoms (no acute changes) Musculoskeletal: Reports: No Symptoms (no acute changes) Skin: Reports: No Symptoms (no acute changes) Neurological: Reports: No Symptoms (no acute changes) Psychiatric: Reports: No Symptoms (no acute changes) - Patient Data Vitals - Most Recent: Last Vital Signs Temp 36.4 C 11/14/16 12:00 Pulse 63 11/14/16 12:00 Resp 15 11/14/16 12:00 BP 121/76 11/14/16 12:00 Pulse Ox 100 11/14/16 12:00 Weight - Most Recent: 82.01 kg I&O - Last 24 hours: Intake & Output 11/14/16 11/14/16 11/14/16 06:59 14:59 22:59 Intake Total 650 810 Output Total 1450 Balance -800 810 Lab Results - Last 24 hrs: Laboratory Results - last 24 hr 11/13/16 11/13/16 11/14/16 Range/Units 16:54 20:44 07:03 WBC (4.0-10.2) K/uL RBC (4.33-5.41) M/uL Hgb (13.1-16.8) g/dL Hct (39.0-49.0) % MCV (84.0-98.0) fL MCH (28.2-33.3) pg MCHC (31.7-36.0) g/dL RDW (11.2-14.1) % Plt Count (150-350) K/uL Neut % (Auto) (45.0-80.0) % Lymph % (Auto) (10.0-50.0) % [place] % (Auto) (2.0-14.0) % Eos % (Auto) (0.0-5.0) % Baso % (Auto) (0.0-2.0) % Neut # (Auto) (1.40-7.00) K/uL Lymph # (Auto) (0.50-3.50) K/uL [place] # (Auto) (0.00-1.00) K/uL Eos # (Auto) (0.00-0.50) K/uL Baso # (Auto) (0.00-0.20) K/uL Sodium (136-145) mmol/L Potassium (3.5-5.1) mmol/L Chloride (98-107) mmol/L Carbon Dioxide (21.0-32.0) mmol/L BUN (7-18) mg/dL Creatinine (0.51-1.17) mg/dL Est Cr Clr Drug Dosing mL/min Estimated GFR (MDRD) mL/min Glucose (74-106) mg/dL POC Glucose 191 H 198 H 152 H (65-110) mg/dl Calcium (8.5-10.1) mg/dL Iron (50-175) ug/dL TIBC (250-450) ug/dL % Saturation Ferritin (8-388) ng/mL Creatine Kinase (26-308) U/L Creatine Kinase Index (0.0-2.5) % CK-MB (CK-2) (0.00-3.60) ng/mL Troponin I (0.000-0.056) ng/mL [id number]-A-[id number] Pept (0-125) pg/mL Vitamin B12 (193-986) pg/mL Folate (8.6-58.9) ng/mL 11/14/16 11/14/16 11/14/16 Range/Units 07:05 07:05 07:05 WBC 6.6 (4.0-10.2) K/uL RBC 3.56 L (4.33-5.41) M/uL Hgb 11.2 L (13.1-16.8) g/dL Hct 31.8 L (39.0-49.0) % MCV 89.3 (84.0-98.0) fL MCH 31.5 (28.2-33.3) pg MCHC 35.2 (31.7-36.0) g/dL RDW 12.1 (11.2-14.1) % Plt Count 212 (150-350) K/uL Neut % (Auto) 66.2 (45.0-80.0) % Lymph % (Auto) 18.3 (10.0-50.0) % [place] % (Auto) 12.3 (2.0-14.0) % Eos % (Auto) 2.9 (0.0-5.0) % Baso % (Auto) 0.3 (0.0-2.0) % Neut # (Auto) 4.37 (1.40-7.00) K/uL Lymph # (Auto) 1.21 (0.50-3.50) K/uL [place] # (Auto) 0.81 (0.00-1.00) K/uL Eos # (Auto) 0.19 (0.00-0.50) K/uL Baso # (Auto) 0.02 (0.00-0.20) K/uL Sodium 135 L (136-145) mmol/L Potassium 3.9 (3.5-5.1) mmol/L Chloride 102 (98-107) mmol/L Carbon Dioxide 25.5 (21.0-32.0) mmol/L BUN 11 (7-18) mg/dL Creatinine 0.92 (0.51-1.17) mg/dL Est Cr Clr Drug Dosing 74.02 mL/min Estimated GFR (MDRD) > 60 mL/min Glucose 160 H (74-106) mg/dL POC Glucose (65-110) mg/dl Calcium 8.2 L (8.5-10.1) mg/dL Iron 59 (50-175) ug/dL TIBC 258 (250-450) ug/dL % Saturation 22.51715 Ferritin 401 H (8-388) ng/mL Creatine Kinase 54 (26-308) U/L Creatine Kinase Index 0.9 (0.0-2.5) % CK-MB (CK-2) 0.50 (0.00-3.60) ng/mL Troponin I 0.013 (0.000-0.056) ng/mL Ogf-Q-Rohourhxmzw Pept 544 H (0-125) pg/mL Vitamin B12 507 (193-986) pg/mL Folate 16.6 (8.6-58.9) ng/mL Med Orders - Current: Current Medications Aspirin (Halfprin) 81 mg PO DAILY [facility] Last Admin: 11/14/16 08:01 Dose: 81 mg Atorvastatin Calcium (Lipitor) 10 mg PO DAILY [facility] Last Admin: 11/14/16 08:01 Dose: 10 mg Calcium Carbonate/Glycine (Tums Extra Strength) 1,500 mg PO BEDTIME [facility] Last Admin: 11/13/16 20:31 Dose: 1,500 mg Famotidine (Pepcid) 20 mg IVPUSH BID [facility] Last Admin: 11/14/16 08:01 Dose: 20 mg Ceftriaxone Sodium 1 gm/ (Sodium Chloride) 100 mls @ 200 mls/hr IV Q12H [facility] Last Admin: 11/14/16 08:01 Dose: 200 mls/hr Lactated Ringer's (Ringers, Lactated) 1,000 mls @ 80 mls/hr IV ASDIRECTED [facility] Last Admin: 11/13/16 20:40 Dose: 80 mls/hr Insulin Aspart (Novolog) 0 unit SUBCUT QIDACANDBED [facility] PRN Reason: Protocol Last Admin: 11/14/16 11:38 Dose: 2 unit Insulin Detemir (Levemir) 4 unit SUBCUT DAILY [facility] Last Admin: 11/14/16 08:02 Dose: 4 units Levothyroxine Sodium (Synthroid) 50 mcg PO DAILY [facility] Last Admin: 11/14/16 08:02 Dose: 50 mcg Lisinopril (Prinivil) 10 mg PO DAILY [facility] Last Admin: 11/14/16 08:01 Dose: 10 mg Magnesium Hydroxide (Milk Of Magnesia) 30 ml PO DAILY PRN PRN Reason: Constipation Metformin HCl (Glucophage Xr) 500 mg PO BID [facility] Last Admin: 11/14/16 08:01 Dose: 500 mg Sodium Chloride (Saline Flush) 10 ml FLUSH ASDIRECTED PRN PRN Reason: Keep Vein Open Last Admin: 11/14/16 08:01 Dose: 10 ml Discontinued Medications Aspirin (Halfprin) 81 mg PO DAILY [facility] Atorvastatin Calcium (Lipitor) 10 mg PO DAILY [facility] Ceftriaxone Sodium (Rocephin) 1 gm IV Q12H [facility] Ceftriaxone Sodium (Rocephin) 1 gm IVPUSH Q12H [facility] Last Admin: 11/11/16 07:38 Dose: 1 gm Lactated Ringer's (Ringers, Lactated) 1,000 mls @ 100 mls/hr IV ASDIRECTED [facility] Last Admin: 11/11/16 18:52 Dose: 100 mls/hr Sodium Chloride (Sodium Chloride 3%) 500 mls @ 50 mls/hr IV ASDIRECTED [facility] Sodium Chloride (Normal Saline) 500 mls @ 50 mls/hr IV .BOLUS ONE Stop: 11/12/16 07:26 Last Admin: 11/11/16 21:52 Dose: 50 mls/hr Sodium Chloride (Sodium Chloride 3%) 500 mls @ 100 mls/hr IV ASDIRECTED [facility] Last Admin: 11/12/16 10:12 Dose: 100 mls/hr Sodium Chloride (Sodium Chloride 3%) 500 mls @ 999 mls/hr IV ASDIRECTED [facility] Stop: 11/14/16 11:16 Last Admin: 11/13/16 12:48 Dose: 999 mls/hr Insulin Aspart (Novolog) 0 unit SUBCUT Q6H [facility] PRN Reason: Protocol Last Admin: 11/10/16 20:54 Dose: 2 units Levothyroxine Sodium (Levothyroxine) 25 mcg PO ACBREAKFAST [facility] Levothyroxine Sodium (Levothyroxine) 25 mcg PO DAILY [facility] Last Admin: 11/12/16 08:24 Dose: 25 mcg Lisinopril (Prinivil) 10 mg PO DAILY [facility] Metformin HCl (Glucophage Xr) 500 mg PO BIDMEALS [facility] Last Admin: 11/10/16 20:50 Dose: 500 mg - Exam Quality Assessment: Reports: DVT Prophylaxis General: Reports: Alert, Oriented HEENT: Reports: Pupils Equal, Pupils Reactive, EOMI, Mucous Membr. Moist/[place] Neck: Reports: Supple Lungs: Reports: Clear to Auscultation, Normal Respiratory Effort Cardiovascular: Reports: Regular Rate, Regular Rhythm GI/Abdominal Exam: Normal Bowel Sounds, Soft, Non-Tender, No Distention (Male) Exam: Deferred Rectal (Males) Exam: Deferred Back Exam: Reports: Normal Inspection, Full Range of Motion Extremities: Normal Range of Motion, Non-Tender, Normal Capillary Refill Skin: Reports: Warm, Dry Neurological: Reports: No New Focal Deficit Psy/Mental Status: Reports: Alert, Normal Affect, Normal Mood *Q Meaningful Use (DIS) - VTE *Q VTE Criteria *Q: - Stroke *Q Stroke Criteria *Q: - AMI *Q AMI Criteria *Q:
== END 2016-11-14 16:44 | disposition home or self-care (01) | DRG 641 ==
LOC: LL.ED 16:03 → LL.MS 17:52
PROVIDERS: ADMIT Family Medicine; ATTEND Family Medicine
DX: E87.1 Hypo-osmolality and hyponatremia (principal); D72.89 Other specified disorders of white blood cells; N39.0 Urinary tract infection, site not specified; E03.9 Hypothyroidism, unspecified; E78.5 Hyperlipidemia, unspecified; M15.0 Primary generalized (osteo)arthritis; R53.83 Other fatigue; E11.9 Type 2 diabetes mellitus without complications; Z79.84 Long term (current) use of oral hypoglycemic drugs; I10 Essential (primary) hypertension; E78.00 Pure hypercholesterolemia, unspecified; N40.0 Benign prostatic hyperplasia without lower urinary tract symptoms; Z96.653 Presence of artificial knee joint, bilateral; I50.9 Heart failure, unspecified; M25.50 Pain in unspecified joint; Z79.82 Long term (current) use of aspirin; Z79.899 Other long term (current) drug therapy; R68.83 Chills (without fever); R05 Cough
CPT/HCPCS: 36000; 36415; 71010; 71020; 80048; 80053; 80061; 81001; 81003; 82009; 82044; 82247; 82248; 82550; 82553; 82607; 82728; 82746; 82962; 83036; 83540; 83550; 83605; 83735; 83880; 84443; 84466; 84484; 84550; 85025; 85379; 85610; 85730; 86140; 86618; 86788; 87040; 87086; 93005; 99285; A9270-GY; J0696; J1815-GY; J7030; J7040; J7050; J7120; S0028

== ENCOUNTER 2017-01-07 10:16 | Day surgery (SDC) | payer MEDICARE, OTHER ==
[~2017-01-07 10:16] MED LIST: Midazolam 1 MG/ML 2 ML SDV ONE; Propofol 200 MG/20 ML SDV ONE; fentaNYL 100 MCG/2 ML SDV ONE
[2017-01-07] MEDS ORDERED: Lactated Ringers 1,000 ML IV SCH ×2 (10:45→12:00)
[2017-01-07] MEDS ORDERED: fentaNYL 100 MCG/2 ML SDV ONE (11:12)
[2017-01-07] MEDS ORDERED: Midazolam 1 MG/ML 2 ML SDV ONE (11:12)
[2017-01-07] MEDS ORDERED: Propofol 200 MG/20 ML SDV ONE (11:12)
--- NOTE | 2017-01-07 11:42 | PCM.OPNOTE ---
- General Post-Op/Procedure Note Date of Surgery/Procedure: 01/07/17 Operative Procedure(s): Colonoscopy Findings: Normal Pre Op Diagnosis: Screening Post-Op Diagnosis: Same Anesthesia Technique: VALENTE Primary Surgeon: Prashant Vasques Anesthesia Provider: Delisa Sheldon Complications: None Condition: Good
--- NOTE | 2017-01-07 11:51 | PCM.HPR ---
H & P Addendum review - H & P Addendum Review Date of Original H & P: 01/01/17 Date Reviewed: 01/07/17 Time Reviewed: 11:05 Patient was Examined: No Changes
[2017-01-07] MEDS ORDERED: Sodium Chloride 0.9% 10 ML Syringe FLUSH PRN (12:00)
[2017-01-07 12:06] VITALS: BP 119/71
--- NOTE | 2017-01-08 08:47 | OR ---
Date of Procedure: 01/07/2017 PREOPERATIVE DIAGNOSIS: Screening. POSTOPERATIVE DIAGNOSIS: Normal colonoscopy. PROCEDURE: Colonoscopy. ANESTHESIA: IV sedation. PROCEDURE IN DETAIL: Patient was brought to the procedure room where he was placed on his left side and IV sedation administered. Digital rectal exam was performed, which was normal. Colonoscope was inserted and advanced to the level of the cecum without difficulty. Cecal position was confirmed by identifying the appendiceal lumen and ileocecal valve. Prep was fair with some thick stool remaining that was mostly suctioned and irrigated. Upon withdrawing the scope, the ascending, transverse, and descending colon were normal in appearance. Sigmoid colon and rectum were normal. Retroflexion was normal. Air was removed and the scope withdrawn. Patient tolerated the procedure well and returned to recovery in stable condition. The patient does not require any further colon screening because of his age. EVELIA LAU MD /[id number]
== END 2017-01-07 12:40 | disposition home or self-care (01) ==
LOC: LL.SDS 10:16
PROVIDERS: ATTEND Surgery
DX: Z12.11 Encounter for screening for malignant neoplasm of colon (principal); E11.9 Type 2 diabetes mellitus without complications; E78.5 Hyperlipidemia, unspecified; Z79.82 Long term (current) use of aspirin; Z79.84 Long term (current) use of oral hypoglycemic drugs; Z79.899 Other long term (current) drug therapy; Z96.653 Presence of artificial knee joint, bilateral
CPT/HCPCS: 82962; G0121; J2250; J2704; J3010; J7120; 00810-QZ